=== PATIENT | male | born 1960 | race Caucasian/White ===

== ENCOUNTER → 2024-10-24 09:14 | Outpatient (BNVA) | payer OTHER, SELFPAY | DX: E03.9 Hypothyroidism, unspecified (principal); E11.9 Type 2 diabetes mellitus without complications; Z23 Encounter for immunization; I10 Essential (primary) hypertension; K59.01 Slow transit constipation; H93.11 Tinnitus, right ear; H91.93 Unspecified hearing loss, bilateral; Z79.84 Long term (current) use of oral hypoglycemic drugs; Z79.899 Other long term (current) drug therapy | CPT/HCPCS: 83036; 90471; 90656; 96127 ==

== ENCOUNTER 2024-11-01 07:27 | Outpatient (REF) | payer OTHER, SELFPAY ==
[2024-11-01 07:43] LABS: MANUAL DIFF FLAG NO
[2024-11-01 08:06] LABS: Basophils Absolute Auto 0.1 X10*3/uL (0.0-0.2); Basophils Percent Auto 0.6 % (0-2); Eosinophils Absolute Auto 0.1 X10*3/uL (0.0-0.4); Eosinophils Percent Auto 1.7 % (0-4); Hemoglobin 14.7 g/dl (14.0-18.0); Imm Gran Abs Auto 0.04 X10*3/uL (0.00-0.03); Imm Gran Pct Auto 0.5 % (0.0-0.4); Lymphocytes Absolute Auto 1.4 X10*3/uL (1.2-4.9); Lymphocytes Percent Auto 16.2 % (20-40); Mean Corpuscular HGB Conc 32.7 g/dl (31.0-36.0); Mean Corpuscular Hemoglobin 27.1 pg (27.0-33.0); Mean Platelet Volume 12.3 fL (9.4-12.4); Monocytes Absolute Auto 0.7 X10*3/uL (0.1-1.2); Monocytes Percent Auto 8.1 % (2-11); Neutrophils Absolute Auto 6.2 x10*3/uL (2.0-8.3); Neutrophils Percent Auto 72.9 % (45-73); Platelet Count 248 X10*3/uL (160-400); Red Blood Count 5.42 X10*6/uL (4.60-5.80); Red Cell Distribution Width 13.6 % (11.0-16.0); White Blood Count 8.4 X10*3/uL (4.8-10.8)
[2024-11-01 08:18] LABS: Estimated Average Glucose 223 mg/dL; Hemoglobin A1C 303.2579 umol/L; Hemoglobin A1c % 9.4 % (<6.0); Total Hemoglobin (HGBA1C) 3802.7942 umol/L
[2024-11-01 08:39] LABS: Alanine Aminotransferase 24 U/L (0-40); Albumin Level 4.1 g/dL (3.5-5.0); Alkaline Phosphatase 66 U/L (39-117); Anion Gap 15 (12-20); Aspartate Amino Transferase 17 U/L (5-37); Bilirubin Total 0.6 mg/dL (0.0-1.0); Blood Urea Nitrogen 21 mg/dL (9-16); Carbon Dioxide 29 mmol/L (22-29); Chloride 100 mmol/L (96-108); Cholesterol 197 mg/dL (<200); Estimated Glomerular Filt Rate > 60; Glucose Fasting 182 mg/dL (60-99); HDL Cholesterol 51 mg/dL (>40); LDL Cholesterol Calculated 125 mg/dL (<100); Potassium 3.6 mmol/L (3.3-5.1); Sodium 140 mmol/L (135-145); Total Protein 7.2 g/dL (6.5-8.0); Triglycerides 107 mg/dL (<150)
[2024-11-01 08:54] LABS: PSA,Total (Free>4and<10) 4.68 ng/mL (0.00-4.00)
[2024-11-01 08:57] LABS: TSH reflex Free T4 78.12 uIU/mL (0.32-4.0); Vitamin D 25-OH Total 21.2 ng/mL (>30)
[2024-11-01 09:40] LABS: Appearance Urine Clear; Color Urine Yellow; Glucose Urine UA 500 mg/dL (Negative); Leukocyte Esterase Urine Trace (Negative); Nitrite Urine Negative (Negative); PH 6.5 (5.0-9.0); Specific Gravity - Urine 1.025 (1.005-1.025); UMIC TRIGGER UACC YES; Urine Blood Large (3+) (Negative); Urine Ketones Negative (Negative); Urine Protein 30 (1+) mg/dL (Neg-Trace)
[2024-11-01 09:42] LABS: Bacteria Urine None Seen (None Seen); RBC Urine >20 /HPF (0-2); Squamous Epithelial Cell Urine 0-2 /HPF (0-2); UACC Culture Trigger YES
[2024-11-01 11:06] LABS: Creatinine Urine 172.15 mg/dL; Microalbum/Creatinine Ratio Ur 106.8 ug/mg cr (<30)
[2024-11-04 12:14] LABS: Free Prostate Spec Ag 0.5 ng/mL; Percent Free Prostate Spec Ag 12 % (calc) (>25); Prostate Specific Ag Total 4.1 ng/mL (< OR = 4.0)
== END 2024-11-01 07:28 | disposition home or self-care (01) ==
LOC: HO.LAB 07:27
DX: Z00.00 Encounter for general adult medical examination without abnormal findings (principal); I10 Essential (primary) hypertension; E03.9 Hypothyroidism, unspecified; E11.9 Type 2 diabetes mellitus without complications; Z12.5 Encounter for screening for malignant neoplasm of prostate
CPT/HCPCS: 36415; 80053; 80061; 81001; 82043; 82306; 82570; 83036; 84153; 84154; 84439; 84443; 85025; 87086

== ENCOUNTER 2024-11-04 06:43 | Outpatient (REF) | payer OTHER, SELFPAY ==
[2024-11-04 08:26] LABS: PSA,Total (Free>4and<10) 3.88 ng/mL (0.00-4.00)
[2024-11-04 09:59] LABS: Appearance Urine Clear; Color Urine Yellow; Glucose Urine UA 500 mg/dL (Negative); Leukocyte Esterase Urine Negative (Negative); Nitrite Urine Negative (Negative); PH 5.5 (5.0-9.0); Specific Gravity - Urine 1.025 (1.005-1.025); UMIC TRIGGER UACC YES; Urine Blood Large (3+) (Negative); Urine Ketones Negative (Negative); Urine Protein 30 (1+) mg/dL (Neg-Trace)
[2024-11-04 10:01] LABS: Bacteria Urine None Seen (None Seen); Hyaline Casts Urine 0-2 /LPF (0-2); RBC Urine >20 /HPF (0-2); Squamous Epithelial Cell Urine 0-2 /HPF (0-2); WBC Urine 0-5 /HPF (0-5)
== END 2024-11-04 06:44 | disposition home or self-care (01) ==
LOC: HO.LAB 06:43
DX: Z00.00 Encounter for general adult medical examination without abnormal findings (principal); I10 Essential (primary) hypertension; E03.9 Hypothyroidism, unspecified; E11.9 Type 2 diabetes mellitus without complications; R97.20 Elevated prostate specific antigen [PSA]; Z12.5 Encounter for screening for malignant neoplasm of prostate
CPT/HCPCS: 36415; 81001; 84153

== ENCOUNTER 2024-11-07 10:09 | Outpatient (AMB) | payer OTHER, SELFPAY ==
[2024-11-07 10:34] VITALS: BP 136/88; PULSE 100; TEMP 36.1; O2SAT 97; BMI 26.9
--- NOTE | 2024-11-07 10:34 | A.OFFPC_ITS ---
Vital Signs 11/07/24 10:34 Height 5 ft 5.55 in Weight 164 lb 8 oz BMI 26.9 BP 136/88 Blood Pressure Location Lt brachial Position Sitting Pulse 100 Pulse Source Pulse Oximeter Temp 96.9 F Temp Source Temporal Artery Scan Pulse Oximetry (%) 97 Oxygen Delivery Method Room Air Intake Visit Reasons: pe Intake Note: Patient is here today for a physical. Lead Producer Required: No Accompanied by: Self / Same As Patient Allergies No Known Allergies Allergy (Verified 11/07/24 10:40) Tobacco use date assessed: 10/24/24 Dental Screening Dental Screen Date: 10/24/24 HPI pe HPI Details Dentist: long time-reports Eye: not in a while-reports that his eyes are good Snellen: Right: Left: Corrected vision: no STI screening: Colonoscopy: due, he wants to hold off and until his insurance changes Pap Smer:n/a PHQ-9: Flu: up to date COVID: x2 and 1 booster Tdap: Given in office Diet: diabetic Exercise: walks on treadmill for at least a mile few times a week The patient is a 63-year-old male who was presenting for annual physical Patient is due for a colonoscopy but he wants to wait until his insurance changes before proceeding Similarly the patient wants to wait for new insurance before being referred to an maintenance groundman The patient was encouraged to see a dentist The patient reports right groin hernia-on exam. The patient has a large right groin reducible hernia He denies pain to the area. Discussed with the patient about possibly referring him to General surgery. The patient wants to hold off on the referral-reports that the areas not bothering him and money he is tight at this time The patient had an elevated PSA that was within normal range but on the higher side of normal on repeat lab Patient does endorse lower urinary symptoms of weak stream, unable to urinate on command. He reports that he had to take the urine cup home in order to complete a urinalysis. Discussed with patient about referring him to Urology and he agreed The patient also had + 3 blood in the urine. Will repeat urinalysis with cytology Patient continues to have large amount of ear impaction-will have the patient continue ear drops and return in 1 week for ear cleaning will refer to urology [facility] Medical History Stroke HTN (hypertension) Type II diabetes mellitus Thyroid cancer Hx pulmonary embolism Surgical History S/P hemorrhoidectomy S/P hernia surgery Family History Father Stroke Type II diabetes mellitus HTN (hypertension) Social History Housing: Apartment Patient Tobacco Use Status: Never used Tobacco e-Cigarette/Vaping Use: Never Used service: No Current occupational status: employed and retired Cognitive needs: No Hearing needs: No Vision needs: No Questionnaire Thrive Questionnaire Date Thrive assessed: 10/24/24 I am a: Patient What is your living situation today?: I have a steady place to live Within the past 12 months, did the food you bought not last and you didn't have the money to get more?: Sometimes True Within the past 12 months, did you worry whether your food would run out before you got money to buy more?: Sometimes True Do you have trouble paying for medicines?: Yes Do you have trouble getting transportation to medical appointments?: No Do you have trouble paying your heating and electricity bill?: No Do you have trouble taking care of your child, family member or friend?: No Do you have trouble with day-to-day activities such as bathing, preparing meals, shopping, managing finances, etc.?: No Are you currently unemployed and looking for a job?: No Are you interested in more education?: No Please select the resources that you would like help with: None Currently or been in a relationship where the following occur: No concerns reported THRIVE Score: 2 ELIDA-7 AMB Questionnaire ELIDA-7 Date ELIDA - 7 assessed: 10/24/24 Source: Developed by Drs. Javier Johnson, Aurea Coe, James Contreras and colleagues, with an educational alicja from [employer]. Review of Systems Const Details: Denies chills, Denies fatigue, Denies fever(s), Denies headache(s) and Denies weakness HEENT Denies change in vision, Denies dizziness, Denies headache(s), Denies hearing loss, Denies nasal congestion, Denies sinus pain, Denies sinus pressure and Denies sore throat Card Denies chest pain, Denies lightheadedness, Denies dyspnea and Denies other (palpitations) Resp Denies cough, Denies dyspnea and Denies wheezing GI Denies abdominal pain, Denies melena, Denies hematochezia, Denies change in bowel habits, Denies dyspepsia and Denies nausea, + right groin hernia Denies hematuria and Denies dysuria, + weak urinary stream, + unable to pee on command, Musc Denies abnormal gait, Denies myalgias, Denies arthralgias, Denies numbness and Denies tingling Skin/Breast Denies rash, Denies unusual bruising and Denies wounds Neuro Denies abnormal gait, Denies dizziness, Denies headache(s), Denies memory loss, Denies numbness, Denies Sensory deficit (Neuro), Denies tingling and Denies weakness Psych Denies anxiety, Denies depression and Denies memory loss Endo Denies cold intolerance, Denies fatigue, Denies heat intolerance, Denies polydipsia and Denies polyuria Cameron/Lymph Denies easy bleeding and Denies easy bruising Aller/Immun Denies wheezing Physical exam (Primary Care) Vital Signs: Last Vital Signs Temp 96.9 F 11/07/24 10:34 Pulse 100 11/07/24 10:34 BP 136/88 11/07/24 10:34 Pulse Ox 97 11/07/24 10:34 Oxygen Delivery Method Room Air 11/07/24 10:34 BMI result Body Mass Index 26.9 Tobacco/Smoking Status: Tobacco use Status Tobacco use date assessed 10/24/24 11/07/24 10:38 Patient Tobacco Use Status Never used Tobacco 11/07/24 10:38 e-Cigarette/Vaping Use Never Used 11/07/24 10:38 Thrive Assessment: Date of Thrive Assessment Date Thrive assessed 10/24/24 11/07/24 10:38 Currently or been in a relationship where the following occur: No concerns reported Const Other: General: no acute distress, well developed, alert and awake Nutritional Appearance: well nourished Orientation/consciousness: patient oriented x3 HENMT Head: Yes normocephalic and Yes atraumatic Ears: hearing grossly normal bilaterally and TM's normal bilaterally General nose exam: Normal external nose present and Normal nares present Mouth: Normal oral and palatal mucosa present and moist mucous membranes Teeth and gingiva: dentition normal Throat: Yes oropharynx normal Eyes Pupils: Equal, round and reactive pupils present and Pupil accommodation reflex normal EOM: EOMs intact bilaterally Neck Neck: Yes normal visual inspection, Yes no lymphadenopathy and Yes trachea midline Thyroid: Thyroid normal Carotids: no bruits Lymphatic: no lymphadenopathy noted Chest Chest palpation & inspection: normal inspection of the chest Resp Effort & Inspection: normal respiratory effort Auscultation: clear to auscultation bilaterally Cardio Rate: regular rate Rhythm: regular rhythm Heart sounds: S1 normal heart sound present, S2 normal heart sound present, no gallops, no murmurs and no rubs Bruits: no abdominal aortic bruits and no carotid bruits GI Palpation (GI): No Abdominal aortic bruit present, Soft to palpation, nontender, No hepatosplenomegaly present and No Rebound tenderness present, + right groin hernia Auscultation: normal bowel sounds General: Yes no CVA tenderness Back/Spine/Pelvis Back: no CVA tenderness Cervical Spine: cervical ROM normal and No Cervical spine tenderness Thoracic/Lumbar Spine: thoraco-lumbar ROM normal, No pain with thoraco-lumbar ROM, No thoracic spinal tenderness and No lumbar spinal tenderness Skin General: warm and dry. Normal skin color. Normal skin turgor Lesions: no lesions Rashes: no rashes Trauma: no lacerations or abrasions Wounds: no wounds Nails: normal Neuro General: patient oriented x3, gait normal and CN's II-XI intact bilaterally Cranial nerves: Yes Equal, round and reactive pupils present Cognition (Neuro): normal cognition Gait exam (Neuro): Normal gait present Motor exam (neuro): 5/5 motor strength present throughout Sensory Exam: No Sensory deficit (Neuro) Deep tendon reflexes (DTR's): Right patellar reflex intensity grade: 2+ and Left patellar reflex intensity grade: 2+ Extrem General: Yes normal to inspection, No edema and No calf tenderness Psych Appearance: grossly normal Affect: normal affect Attitude: cooperative Thought process: Normal thought process present Immunizations Boostrix Tdap 2.5 Lf unit-8 mcg-5 Lf/0.5 mL intramuscular syringe Performing Provider: ROLF Mendez Performing Location: [facility] Administered by: JEFFREY Miller on 11/07/24 11:01 Dose Route Admin Location Dispensed Lot Number Expiration Date NDC Manager Application 0.5 mL IM Right Deltoid 0.5 mL [id number] 12/07/26 00224-817-45 [employer] VIS Given Date VIS Provided VIS Publication Date 11/07/24 Single Vaccine 21 Eligibility Eligibility Date Funding Source Not [facility] Eligible 11/07/24 Private Results Reviewed Results Reviewed: Laboratory Tests 11/01/24 11/01/24 11/04/24 07:41 08:54 06:53 WBC 8.4 RBC 5.42 Hgb 14.7 Hct 45.0 Plt Count 248 Sodium 140 Potassium 3.6 Chloride 100 Carbon Dioxide 29 Anion Gap 15 BUN 21 H Creatinine 0.85 Estimated GFR > 60 Fasting Glucose 182 H Hemoglobin A1c % 9.4 H Calcium 9.0 Total Bilirubin 0.6 AST 17 ALT 24 Alkaline Phosphatase 66 Total Protein 7.2 Albumin 4.1 Triglycerides 107 Cholesterol 197 LDL Cholesterol, Calc 125 H HDL Cholesterol 51 Total PSA 4.68 H 3.88 Total PSA (off-site) 4.1 H 25-OH Vitamin D Total 21.2 L TSH 78.12 H Free T4 1.20 Urine Color Urine Appearance Urine pH Ur Specific [place] Urine Protein Urine Glucose (UA) Urine Ketones Urine Blood Urine Nitrite Ur Leukocyte Esterase Urine RBC Urine WBC Ur Squamous Epith Cells Hyaline Casts 11/04/24 09:15 WBC RBC Hgb Hct Plt Count Sodium Potassium Chloride Carbon Dioxide Anion Gap BUN Creatinine Estimated GFR Fasting Glucose Hemoglobin A1c % Calcium Total Bilirubin AST ALT Alkaline Phosphatase Total Protein Albumin Triglycerides Cholesterol LDL Cholesterol, Calc HDL Cholesterol Total PSA Total PSA (off-site) 25-OH Vitamin D Total TSH Free T4 Urine Color Yellow Urine Appearance Clear Urine pH 5.5 Ur Specific [place] 1.025 Urine Protein 30 (1+) H Urine Glucose (UA) 500 H Urine Ketones Negative Urine Blood Large (3+) H Urine Nitrite Negative Ur Leukocyte Esterase Negative Urine RBC >20 H Urine WBC 0-5 Ur Squamous Epith Cells 0-2 Hyaline Casts 0-2 Coding Level of Care Code Est Pt Prev Care 40-64y([id number]) Diagnoses Annual physical exam Z00.00 Idiopathic hematuria, unspecified whether glomerular morphologic changes present N02.9 Hematuria type: idiopathic Glomerular morphologic changes: unspecified whether glomerular morphologic changes present Elevated PSA R97.20 Decreased hearing of both ears H91.93 Ringing in right ear H93.11 Slow transit constipation K59.01 Constipation type: slow transit constipation Bilateral impacted cerumen H61.23 Acquired hypothyroidism E03.9 Type 2 diabetes mellitus without complication, without long-term current use of insulin E11.9 Diabetes mellitus joint terminal attack controller insulin use: without joint terminal attack controller use Diabetes mellitus complication status: without complication Right groin hernia K40.90 Decreased urine output R34 Benign essential HTN I10 Time Spent (min) 39 Assessment & Plan Assessment & Plan (1) Annual physical exam: Code(s): Z00.00 - Encounter for general adult medical examination without abnormal findings Category: Medical Plan: The patient is a 63-year-old male who was presenting for annual physical Patient is due for a colonoscopy but he wants to wait until his insurance changes before proceeding Similarly the patient wants to wait for new insurance before being referred to an maintenance groundman The patient was encouraged to see a dentist (2) Hematuria: Code(s): R31.9 - Hematuria, unspecified Category: Medical Qualifiers: Hematuria type: idiopathic Glomerular morphologic changes: unspecified whether glomerular morphologic changes present Qualified Code(s): N02.9 - Recurrent and persistent hematuria with unspecified morphologic changes Plan: Urinalysis was reordered along with a cytology No CVA tenderness (3) Elevated PSA: Code(s): R97.20 - Elevated prostate specific antigen [PSA] Category: Medical Plan: The patient had an elevated PSA that was within normal range but on the higher side of normal on repeat lab Patient does endorse lower urinary symptoms of weak stream, unable to urinate on command. He reports that he had to take the urine cup home in order to complete a urinalysis. Discussed with patient about referring him to Urology and he agreed (4) Decreased hearing of both ears: Code(s): H91.93 - Unspecified hearing loss, bilateral Category: Medical Plan: Same as above (5) Ringing in right ear: Code(s): H93.11 - Tinnitus, right ear Category: Medical Plan: Most likely due to bilateral ear impaction. Unable to visualize eardrum, will work on removing cerumen to further assess (6) Constipation: Code(s): K59.00 - Constipation, unspecified Category: Medical Qualifiers: Constipation type: slow transit constipation Qualified Code(s): K59.01 - Slow transit constipation Plan: constipation: ongoing, he reports that he is going everyday but has a sit on the toilet for extended periods in order to go Discussed with patient that he should increase his fluid intake, increase his fiber intake and stay active as possible (7) Bilateral impacted cerumen: Code(s): H61.23 - Impacted cerumen, bilateral Category: Medical Plan: bilateral nares: ear canals blocked with cerumen reports ringing the right ear. Dark brown, hard appearing cerumen in boths Reports mild decreased hearing, denies ear pain debrox ordered. Discussed with patient that this might not be covered because it could be purchased OTC Patient was encouraged to get it [id number] if his insurance does not cover it Bilateral ear continued to have large amount of dark brown cerumen impaction The patient was encouraged to continue to use the ear drops and to return in 1 week for ear cleaning (8) Acquired hypothyroidism: Code(s): E03.9 - Hypothyroidism, unspecified Category: Medical Plan: Acquired hypothyroidism due to thyroid cancer in 2011 in a full removal of thyroid glands Continue levothyroxine 150 mcg daily Patient reports that he was taking half of the dose at sometimes to prevent the medication from running out The patient TSH was elevated but his T4 was within normal range We will recheck labs in 3 months (9) Type II diabetes mellitus: Comment: father Code(s): E11.9 - Type 2 diabetes mellitus without complications Category: Medical Qualifiers: Diabetes mellitus chcf insulin use: without joint terminal attack controller use Diabetes mellitus complication status: without complication Qualified Code(s): E11.9 - Type 2 diabetes mellitus without complications Plan: The patient is currently on metformin 500 mg b.i.d.. A1c 9.7. in office. Will increase metformin to 1000 mg b.i.d. discussed with patient about dietary changes We will recheck labs in 3 months (10) Right groin hernia: Code(s): K40.90 - Unilateral inguinal hernia, without obstruction or gangrene, not specified as recurrent Category: Medical Plan: Large reducible right groin hernia. Denies pain. Declined referral to general surgery due to pending insurance changes and limited funds. Discussed with patient that if the area starts hurting he would have to go to emergency room (11) Decreased urine output: Code(s): R34 - Anuria and oliguria Category: Medical Plan: The patient was started on Flomax 0.4 mg daily and the patient was referred to [facility] (12) Benign essential HTN: Code(s): I10 - Essential (primary) hypertension Category: Medical Plan: The patient blood pressure was 136/88 in office Continue lisinopril 40 mg daily, hydrochlorothiazide 12.5 mg daily Reinforced a low-sodium diet will continue to monitor Plan Patient to return in 3 months for follow up appointment Orders: Orders Complete Blood Count Auto Diff 3 Months E03.9 - Hypothyroidism, unspecified, E11.9 - Type 2 diabetes mellitus without complications, I10 - Essential (primary) hypertension UA CC w/rflx Micro + Cult 3 Months E03.9 - Hypothyroidism, unspecified, E11.9 - Type 2 diabetes mellitus without complications, I10 - Essential (primary) hypertension TSH reflex Free T4 3 Months E03.9 - Hypothyroidism, unspecified, E11.9 - Type 2 diabetes mellitus without complications, I10 - Essential (primary) hypertension Vitamin D 25-OH Total 3 Months E03.9 - Hypothyroidism, unspecified, E11.9 - Type 2 diabetes mellitus without complications, I10 - Essential (primary) hypertension Hemoglobin A1c 3 Months E03.9 - Hypothyroidism, unspecified, E11.9 - Type 2 diabetes mellitus without complications, I10 - Essential (primary) hypertension TDaP Immunization Today Z23 - Encounter for immunization UA CC w/rflx Micro + Cult Today R31.9 - Hematuria, unspecified Urine Cytology Today R31.9 - Hematuria, unspecified Lipid Panel 3 Months E03.9 - Hypothyroidism, unspecified, E11.9 - Type 2 diabetes mellitus without complications, I10 - Essential (primary) hypertension Comprehensive [place]. Panel Fast 3 Months E03.9 - Hypothyroidism, unspecified, E11.9 - Type 2 diabetes mellitus without complications, I10 - Essential (pr imary) hypertension Glucose Fasting 3 Months E03.9 - Hypothyroidism, unspecified, E11.9 - Type 2 diabetes mellitus without complications, I10 - Essential (primary) hypertension Referrals Urology Referral N02.9 - Recurrent and persistent hematuria with unspecified morphologic changes, R34 - Anuria and oliguria, R97.20 - Elevated prostate specific antigen [PSA] Medications: New tamsulosin (Flomax) 0.4 mg PO BEDTIME 30 caps 2RF
== END 2024-11-07 11:17 | disposition home or self-care (01) ==
DX: Z23 Encounter for immunization (principal)

== ENCOUNTER → 2024-11-07 10:09 | Outpatient (BNVA) | payer OTHER, SELFPAY | DX: Z00.00 Encounter for general adult medical examination without abnormal findings (principal); Z23 Encounter for immunization; N02.9 Recurrent and persistent hematuria with unspecified morphologic changes; R97.20 Elevated prostate specific antigen [PSA]; H91.93 Unspecified hearing loss, bilateral; H93.11 Tinnitus, right ear; K59.01 Slow transit constipation; H51.23 Internuclear ophthalmoplegia, bilateral; E03.9 Hypothyroidism, unspecified; E11.9 Type 2 diabetes mellitus without complications; K40.90 Unilateral inguinal hernia, without obstruction or gangrene, not specified as recurrent; R34 Anuria and oliguria; I10 Essential (primary) hypertension; Z79.899 Other long term (current) drug therapy | CPT/HCPCS: 90471; 90715 ==

== ENCOUNTER 2024-11-11 08:41 | Outpatient (REF) | payer OTHER, SELFPAY ==
[2024-11-11 09:59] LABS: Urine Cytology See Pathology rpt
[2024-11-11 10:14] LABS: Appearance Urine Clear; Color Urine Yellow; Glucose Urine UA 500 mg/dL (Negative); Leukocyte Esterase Urine Negative (Negative); Nitrite Urine Negative (Negative); PH 6.5 (5.0-9.0); Specific Gravity - Urine 1.025 (1.005-1.025); UMIC TRIGGER UACC YES; Urine Blood Moderate (2+) (Negative); Urine Ketones Trace mg/dL (Negative); Urine Protein Trace mg/dL (Neg-Trace)
[2024-11-11 10:20] LABS: Bacteria Urine None Seen (None Seen); Hyaline Casts Urine 0-2 /LPF (0-2); RBC Urine >20 /HPF (0-2); Squamous Epithelial Cell Urine 0-2 /HPF (0-2); WBC Urine 0-5 /HPF (0-5)
== END 2024-11-11 08:42 | disposition home or self-care (01) ==
LOC: HO.LAB 08:41
DX: R31.9 Hematuria, unspecified (principal)
CPT/HCPCS: 81001; 81003; 88112

== ENCOUNTER 2024-11-13 10:13 | Outpatient (AMB) | payer OTHER, SELFPAY ==
--- NOTE | 2024-11-13 10:20 | MHC.PC.OV ---
Vital Signs 11/13/24 10:26 Height 5 ft 5.55 in Weight 169 lb BMI 27.7 BP 130/74 Blood Pressure Location Lt brachial Position Sitting Pulse 98 Pulse Source Pulse Oximeter Temp 97.3 F Temp Source Temporal Artery Scan Pulse Oximetry (%) 98 Oxygen Delivery Method Room Air Intake Visit Reasons: Ear Cleaning Intake Note: Patient is here to follow up on Ear cleaning. [place] Screen Measurer And Trimmer Required: No [place] Maori: Not Required per policy Accompanied by: Self / Same As Patient Allergies No Known Allergies Allergy (Verified 11/13/24 10:21) Tobacco use date assessed: 11/13/24 Fall risk assessment: No Falls in past year Last assessed Fall Risk: 11/13/24 Dental Screening Dental Screen Date: 10/24/24 HPI Ear Cleaning HPI Details 63-year-old male with past medical history of diabetes mellitus, hypothyroidism and hypertension last seen by nurse practitioner coming in for ear cleaning. [facility] Medical History Stroke HTN (hypertension) Type II diabetes mellitus Thyroid cancer Hx pulmonary embolism Surgical History S/P hemorrhoidectomy S/P hernia surgery Family History Father Stroke Type II diabetes mellitus HTN (hypertension) Social History Housing: Apartment Patient Tobacco Use Status: Never used Tobacco e-Cigarette/Vaping Use: Never Used service: No Current occupational status: employed and retired Cognitive needs: No Hearing needs: No Vision needs: No Questionnaire Thrive Questionnaire Date Thrive assessed: 10/24/24 I am a: Patient What is your living situation today?: I have a steady place to live Within the past 12 months, did the food you bought not last and you didn't have the money to get more?: Sometimes True Within the past 12 months, did you worry whether your food would run out before you got money to buy more?: Sometimes True Do you have trouble paying for medicines?: Yes Do you have trouble getting transportation to medical appointments?: No Do you have trouble paying your heating and electricity bill?: No Do you have trouble taking care of your child, family member or friend?: No Do you have trouble with day-to-day activities such as bathing, preparing meals, shopping, managing finances, etc.?: No Are you currently unemployed and looking for a job?: No Are you interested in more education?: No Please select the resources that you would like help with: None Currently or been in a relationship where the following occur: No concerns reported THRIVE Score: 2 AUDIT C Alcohol Use Questionnaire (AUDIT-C) 3. How often do you have six or more drinks on one occasion?: Never Total Score: 0 ELIDA-7 AMB Questionnaire ELIDA-7 Date ELIDA - 7 assessed: 10/24/24 Source: Developed by Drs. Javier Johnson, Aurea Coe, James Contreras and colleagues, with an educational alicja from [employer]. Review of Systems Const Denies body aches, Denies chills and Denies fever(s) Eyes Reports no additional complaints ENT Details: Ear clogged feeling bilaterally Denies dizziness Skin/Breast Reports system reviewed and no additional complaints, except as documented Neuro Denies dizziness Psych Reports no additional complaints Physical exam (Primary Care) Vital Signs: Last Vital Signs Temp 97.3 F 11/13/24 10:26 Pulse 98 11/13/24 10:26 BP 130/74 11/13/24 10:26 Pulse Ox 98 11/13/24 10:26 Oxygen Delivery Method Room Air 11/13/24 10:26 BMI result Body Mass Index 27.7 Tobacco/Smoking Status: Tobacco use Status Tobacco use date assessed 11/13/24 11/13/24 10:28 Patient Tobacco Use Status Never used Tobacco 11/13/24 10:28 e-Cigarette/Vaping Use Never Used 11/13/24 10:28 Thrive Assessment: Date of Thrive Assessment Date Thrive assessed 10/24/24 11/13/24 10:28 Currently or been in a relationship where the following occur: No concerns reported Const General: cooperative, healthy appearing, comfortable and no acute distress Orientation/consciousness: patient oriented x3 HENMT Head: Yes normocephalic Ears: hearing grossly normal bilaterally and Abnormal EAC present cerumen impaction bilateral General nose exam: Normal external nose present Eyes General: appearance normal, both eyes and all related structures Conjunctivae: conjunctivae normal Neck Neck: Yes full ROM and Yes no lymphadenopathy Resp Effort & Inspection: normal respiratory effort Cardio Rate: regular rate Skin General skin exam: no rashes or lesions noted Neuro General: patient oriented x3 Gait exam (Neuro): Normal gait present Extrem General: Yes normal to inspection, Yes full ROM and No edema Psych Affect: normal affect Attitude: cooperative Insight: Good insight present (Psych) Judgement: Good judgement present (Psych) Office Procedures Cerumen Removal From which ear canal was the cerumen removed: bilateral Removal: irrigation and cerumen loop/spoon Notes: patient tolerated procedure well, no complications and ear canal clear [id number] Irrigation/Lavage Coding Level of Care Code Procedure Only Diagnoses Bilateral impacted cerumen H61.23 CPT Codes Office Procedure - CPT: 35174-Wbq Irrigation/Lavage ([id number]) Assessment & Plan Assessment & Plan (1) Bilateral impacted cerumen: Code(s): H61.23 - Impacted cerumen, bilateral Category: Medical Plan: Ears were successfully cleaned using lighted curette and irrigation. TMs were visualized as intact with well aerated middle ear spaces patient tolerated the procedure well. Additionally had some lightheadedness that resolved within a few minutes. Patient left the room without issue. Follow up as needed for this concern. Plan This note was constructed using voice recognition software. While every effort has been made to ensure accuracy and rn endoscopy, still areas may have been included sometimes these areas may affect the content or meeting of the given symptoms. Total time spent caring for the patient today was 15 minutes. This includes time spent before the visit reviewing the chart, time spent during the visit, and time spent after the visit and documentation.
[2024-11-13 10:26] VITALS: BP 130/74; PULSE 98; TEMP 36.3; O2SAT 98; BMI 27.7
== END 2024-11-13 11:04 | disposition home or self-care (01) ==
DX: H61.23 Impacted cerumen, bilateral (principal)

== ENCOUNTER → 2024-11-13 10:13 | Outpatient (BNVA) | payer OTHER, SELFPAY | DX: H61.23 Impacted cerumen, bilateral (principal) | CPT/HCPCS: 69210 ==

== ENCOUNTER 2025-01-02 14:30 | Outpatient (AMB) | payer MEDICARE, SELFPAY ==
--- NOTE | 2025-01-02 14:44 | A.OFFVIS_ITS ---
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 Yoon. He has a past medical history of hypertension, type 2 diabetes, thyroid cancer, and pulmonary embolism. He presents to the office today as a new patient for gross hematuria. In discussion with the patient today he reports having followed up with his PCP for ongoing urinary issues he had been experiencing at which time urinalysis noted microscopic hematuria and recommendations were made for urology referral for further assessment evaluation. He reports having initiated Flomax with PCP and feels this has been helpful in episodes of urinary hesitancy and weak urinary stream he had been experiencing. However he describes an episode of gross hematuria approximately 2 weeks ago. He reports this was a solitary event. Unable to obtain urine for urinalysis today however PVR 190 mL. We discussed potential causes of gross hematuria, incomplete bladder emptying, and lower urinary tract symptoms patient was experiencing. When asked he denies any known workplace chemical exposure and or nicotine dependence. We discussed obtaining further imaging. In review of patient's chart it appears urine cytology 11/12 Negative for high-grade urothelial carcinoma. I discussed reasons for blood in the urine may include but are not limited to kidney stones, cancer in the urinary tract, BPH, kidney stone disease or inflammatory conditions of the urinary tract. I have discussed workup to include cystoscopy evaluation. In review of patient's chart it appears PSA 11/12 3.9. Discussion Notes During the visit, I discussed the finding of gross hematuria with the patient. I explained the difference between microscopic and gross hematuria and emphasized that gross hematuria warrants further investigation. I recommended obtaining a CT scan of the kidneys and bladder for further assessment evaluation. I also discussed the safety and efficacy of performing a cystoscopy to inspect the bladder, providing reassurance about the procedure's duration, and risks and benefits. The patient was informed of the need for this diagnostic evaluation due to the presence of visible blood. We reviewed his current use of tamsulosin, which he finds beneficial. No further questions or concerns were expressed by the patient at this time. Plan The management plan involves conducting a CT scan of the kidneys and bladder to evaluate for urinary tract abnormalities due to gross hematuria. Upon finding any abnormalities or if gross hematuria persists, a cystoscopy will be performed to directly examine the bladder. I will ensure the patient is adequately informed about the procedural details, expected benefits, and risk, securing his consent. The patient is encouraged to maintain the use of tamsulosin as it ameliorates his current symptoms. Further management steps will be considered based on the results of these investigations. [facility] Medical History Stroke HTN (hypertension) Type II diabetes mellitus Thyroid cancer Hx pulmonary embolism Surgical History S/P hemorrhoidectomy S/P hernia surgery Family History Father Stroke Type II diabetes mellitus HTN (hypertension) Social History Housing: Apartment Patient Tobacco Use Status: Never used Tobacco e-Cigarette/Vaping Use: Never Used service: No Current occupational status: employed and retired Cognitive needs: No Hearing needs: No Vision needs: No Review of Systems Const All systems reviewed & are unremarkable except as noted in HPI and below Eyes Reports no additional complaints ENT Reports as per HPI Card Reports as per HPI Resp Reports no additional complaints GI Reports no additional complaints Reports as per HPI Musc Reports no additional complaints Neuro Reports as per HPI Psych Reports no additional complaints Endo Reports no additional complaints Cameron/Lymph Reports as per HPI Aller/Immun Reports no additional complaints Physical Exam Const General: cooperative, healthy appearing, comfortable, no acute distress, well developed, alert and awake Orientation/consciousness: patient oriented x3 Limitations: no limitations HEENT Head: Yes normal to inspection, Yes normocephalic and Yes atraumatic Ears: hearing grossly normal bilaterally Eyes General: appearance normal, both eyes and all related structures Neck Neck: Yes normal visual inspection and Yes trachea midline Chest Chest palpation & inspection: normal inspection of the chest Resp Effort & Inspection: normal respiratory effort and able to speak in complete sentences Cardio Rate: regular rate GI Inspection: Yes normal to inspection General: Yes no CVA tenderness Back/Spine/Pelvis Back: no CVA tenderness Skin General skin exam: no rashes or lesions noted Neuro General: patient oriented x3 Extrem General: Yes normal to inspection Psych Appearance: grossly normal and well kempt Mental Status: mental status grossly normal Speech and movement: Normal speech and movement present and Clear speech present Affect: normal affect Attitude: cooperative Thought process: Normal thought process present Thought content: Normal thought content present Insight: Fair insight present (Psych) Judgement: Fair judgement present (Psych) Office Procedures Post Void Residual Post Residual Void Post Void Residual (PVR): 190 [id number] Void Residual by ultrasound Assessment & Plan Assessment & Plan (1) Gross hematuria: Code(s): R31.0 - Gross hematuria Category: Medical (2) Incomplete bladder emptying: Code(s): R33.9 - Retention of urine, unspecified Category: Medical Plan Unable to obtain urine for urinalysis however PVR 190ml's. We discussed at length potential causes of gross hematuria as well as lower urinary tract symptoms he had been experiencing. We discussed potential causes of incomplete bladder emptying Will obtain CT urogram for further assessment evaluation. BUN and creatinine ordered for imaging. Continue Flomax as prescribed. Schedule for in office cystoscopy with imaging and labs to be completed prior Follow-up per doctor's orders; or sooner with any issues, concerns, and or questions. Orders: Orders CT urogram Today R31.0 - Gross hematuria Blood Urea Nitrogen Today R31.0 - Gross hematuria Creatinine Today R31.0 - Gross hematuria Patient Instructions: The patient had an opportunity to ask questions regarding the treatment plan. All questions were answered. Physical exam, labs, and imaging were discussed and reviewed in detail. As well as risks, benefits, and discussion of treatment choices. No major barriers to understanding were identified. The patient expressed understanding and agreement with the above treatment plan. The patient was made aware they should contact our office by phone for worsening of their current condition, the appearance of new symptoms, or with any questions or concerns. Compliance is encouraged with any medications and follow up testing that is ordered. It is a privilege to be allowed the opportunity to participate in? your urological care.? Again, if you have any questions or concerns If you have any questions or concerns please do not hesitate to contact me. The office is [phone]. This note is constructed using voice recognition software. While every effort has been made to ensure accuracy orthotic and prosthetic technician errors may have been included. Yours sincerely, MITCH Barba Coding Level of Care Code New Pt Level 3 (06365) Diagnoses Gross hematuria R31.0 Incomplete bladder emptying R33.9 CPT Codes Post Residual Void - PVR CPT Code: 82601-Kscg Void Residual by ultrasound ([id number])
== END 2025-01-02 15:26 | disposition home or self-care (01) ==
PROVIDERS: Visit Provider Nurse Practitioner Family
DX: R31.0 Gross hematuria (principal); R33.9 Retention of urine, unspecified
CPT/HCPCS: 99203

== ENCOUNTER → 2025-01-02 14:30 | Outpatient (BNVA) | payer OTHER, SELFPAY | PROVIDERS: Visit Provider Nurse Practitioner Family | DX: R31.0 Gross hematuria (principal); R33.9 Retention of urine, unspecified; I10 Essential (primary) hypertension | CPT/HCPCS: 51798; 99202 ==

== ENCOUNTER 2025-02-06 09:50 | Outpatient (AMB) | payer MEDICARE, SELFPAY ==
[2025-02-06 10:04] VITALS: BP 124/76; PULSE 76; RESP 18; TEMP 36.6; O2SAT 99; BMI 26.3
--- NOTE | 2025-02-06 10:04 | MHC.PC.OV ---
Vital Signs 02/06/25 10:04 Height 5 ft 5.5 in Weight 160 lb 6.4 oz BMI 26.3 BP 124/76 Blood Pressure Location Lt brachial Position Sitting Respiration 18 Pulse 76 Pulse Source Pulse Oximeter Temp 97.9 F Temp Source Oral Pulse Oximetry (%) 99 Oxygen Delivery Method Room Air Intake Visit Reasons: 3 Month F/U Records Management Associate Required: No Fabrication Specialist: Not Required per policy Accompanied by: Self / Same As Patient Allergies No Known Allergies Allergy (Verified 02/06/25 10:39) Medication List - Last Reconciled 02/06/25 by ROLF Mendez hydrochlorothiazide 12.5 mg PO DAILY levothyroxine 150 mcg PO DAILY lisinopril 40 mg PO DAILY metformin 1,000 mg (2 x 500 mg) PO BID tamsulosin (Flomax) 0.4 mg PO BEDTIME Tobacco use date assessed: 02/06/25 Fall risk assessment: No Falls in past year Last assessed Fall Risk: 02/06/25 Dental Screening Dental Screen Date: 02/06/25 Did you have a dental visit in the last 12 months?: No Did you have a dental problem in the last 6 months where you did not have access to dental care?: No Was dental information given to patient?: No HPI 3 Month F/U HPI Details The patient is a 64-year-old male presenting for a follow-up on Type 2 Diabetes Mellitus and Hypertension. He has experienced significant improvement in glycemic control with a decline in HbA1c from 9.7% to 7.4%, reflecting the effectiveness of current diabetes management strategies. Historically, the patient maintained HbA1c levels around 7, indicating previous positive control. The objective is to further reduce these levels below 7. Additionally, his blood pressure remains well-controlled, with a recent reading of 124/76 mmHg. The patient has successfully managed nocturia with Flomax and scheduled cystectomy. [facility] Medical History Stroke HTN (hypertension) Type II diabetes mellitus Thyroid cancer Hx pulmonary embolism Surgical History S/P hemorrhoidectomy S/P hernia surgery Family History Father Stroke Type II diabetes mellitus HTN (hypertension) Social History Housing: Apartment Patient Tobacco Use Status: Never used Tobacco e-Cigarette/Vaping Use: Never Used service: No Current occupational status: employed and retired Cognitive needs: No Hearing needs: No Vision needs: No Questionnaire Thrive Questionnaire Date Thrive assessed: 02/06/25 I am a: Patient What is your living situation today?: I have a steady place to live Within the past 12 months, did the food you bought not last and you didn't have the money to get more?: Sometimes True Within the past 12 months, did you worry whether your food would run out before you got money to buy more?: Sometimes True Do you have trouble paying for medicines?: Yes Do you have trouble getting transportation to medical appointments?: No Do you have trouble paying your heating and electricity bill?: No Do you have trouble taking care of your child, family member or friend?: No Do you have trouble with day-to-day activities such as bathing, preparing meals, shopping, managing finances, etc.?: No Are you currently unemployed and looking for a job?: No Are you interested in more education?: No Please select the resources that you would like help with: None Currently or been in a relationship where the following occur: No concerns reported THRIVE Score: 2 AUDIT C Alcohol Use Questionnaire (AUDIT-C) 1. How often do you have a drink containing alcohol?: Never Total Score: 0 Score Reviewed/Action Taken: No ELIDA-7 AMB Questionnaire ELIDA-7 Date ELIDA - 7 assessed: 10/24/24 Source: Developed by Drs. Javier Johnson, Aurea Coe, James Contreras and colleagues, with an educational alicja from [employer]. Review of Systems Const Denies headache(s) Eyes Denies loss of vision ENT Denies vertigo, Denies dizziness, Denies headache(s) and Denies sore throat Card Denies chest pain, Denies leg edema and Denies lightheadedness Resp Denies cough, Denies hemoptysis and Denies wheezing GI Denies abdominal pain, Denies melena, Denies constipation, Denies diarrhea and Denies vomiting Denies dysuria, Denies urinary frequency and Denies urinary urgency Musc Denies arthralgias, Denies joint swelling, Denies numbness and Denies tingling Neuro Denies Abnormal speech present, Denies behavioral changes, Denies vertigo, Denies dizziness, Denies headache(s), Denies loss of vision, Denies memory loss, Denies numbness and Denies tingling Psych Denies anxiety, Denies behavioral changes, Denies depression, Denies memory loss and Denies panic attacks Cameron/Lymph Denies easy bleeding and Denies easy bruising Aller/Immun Denies wheezing Physical exam (Primary Care) Vital Signs: Last Vital Signs Temp 97.9 F 02/06/25 10:04 Pulse 76 02/06/25 10:04 Resp 18 02/06/25 10:04 BP 124/76 02/06/25 10:04 Pulse Ox 99 02/06/25 10:04 Oxygen Delivery Method Room Air 02/06/25 10:04 BMI result Body Mass Index 26.3 Tobacco/Smoking Status: Tobacco use Status Tobacco use date assessed 02/06/25 02/06/25 10:07 Patient Tobacco Use Status Never used Tobacco 02/06/25 10:07 e-Cigarette/Vaping Use Never Used 02/06/25 10:07 Thrive Assessment: Date of Thrive Assessment Date Thrive assessed 02/06/25 02/06/25 10:07 Currently or been in a relationship where the following occur: No concerns reported Const General: healthy appearing, no acute distress, alert and awake Nutritional Appearance: well nourished Orientation/consciousness: oriented to person, oriented to place and oriented to time HENMT Ears: TM's normal bilaterally General nose exam: Normal nasal mucous membranes and turbinates present Eyes Conjunctivae: conjunctivae normal Sclerae: sclerae normal Pupils: Equal, round and reactive pupils present Neck Neck: Yes no lymphadenopathy and Yes no JVD Thyroid: Thyroid normal Carotids: no bruits Resp Effort & Inspection: normal respiratory effort and not tachypneic Auscultation: no crackles, no rales, no rhonchi and no wheezes Cardio Rate: regular rate Rhythm: regular rhythm Heart sounds: no murmurs and normal S1 and S2 GI Palpation (GI): Soft to palpation, nontender, no hepatomegaly and no splenomegaly Auscultation: normal bowel sounds Skin General skin exam: no rashes or lesions noted and dry skin Neuro General: oriented to person, oriented to place and oriented to time Cranial nerves: Yes Equal, round and reactive pupils present Speech: No Abnormal speech present Gait exam (Neuro): Normal gait present Motor exam (neuro): no tremor noted Extrem Right upper extremity: full ROM Left upper extremity: full ROM Right lower extremity: full ROM; no edema Left lower extremity: full ROM; no edema Psych Mental Status: mental status grossly normal Speech and movement: Normal speech and movement present Affect: normal affect Attitude: cooperative Thought process: Normal thought process present Results AMB Hemoglobin A1c AMB Hemoglobin A1c 7.4 % Last Edit by Rosibel Sumner CMA on 02/06/25 10:19 Results Reviewed Results Reviewed: Laboratory Last Values Hgb A1c (Clinic) 7.4 % (4.0-6.0) H 02/06/25 10:08 Coding Level of Care Code Est Pt Level 4 (32093) Diagnoses Type 2 diabetes mellitus without complication, without long-term current use of insulin E11.9 Diabetes mellitus termite inspector insulin use: without termite inspector use Diabetes mellitus complication status: without complication Benign essential HTN I10 Acquired hypothyroidism E03.9 Elevated PSA R97.20 Idiopathic hematuria, unspecified whether glomerular morphologic changes present N02.9 Hematuria type: idiopathic Glomerular morphologic changes: unspecified whether glomerular morphologic changes present Time Spent (min) 36 Assessment & Plan Assessment & Plan (1) Type II diabetes mellitus: Comment: father Code(s): E11.9 - Type 2 diabetes mellitus without complications Category: Medical Qualifiers: Diabetes mellitus intermediate insulin use: without intermediate use Diabetes mellitus complication status: without complication Qualified Code(s): E11.9 - Type 2 diabetes mellitus without complications Plan: A1c 7.4% in office, went from 9.7% on previous visit. At that time metformin a 1000 mg b.i.d. was started. We will continue this dose and have the patient repeat labs in months Reinforced low sugar/carbohydrate diet and activity as tolerated (2) Benign essential HTN: Code(s): I10 - Essential (primary) hypertension Category: Medical Plan: Blood pressure is within normal limits in office Reinforced dash diet Continue lisinopril 40 mg daily, hydrochlorothiazide 12.5 mg daily (3) Acquired hypothyroidism: Code(s): E03.9 - Hypothyroidism, unspecified Category: Medical Plan: The patient not complete preordered labs and will get these done as soon as possible Continue levothyroxine 150 mcg daily (4) Elevated PSA: Code(s): R97.20 - Elevated prostate specific antigen [PSA] Category: Medical Plan: The patient has been followed by Urology. He is on Flomax 0.4 mg at bedtime And has a pending cystoscopy to further evaluate (5) Hematuria: Code(s): R31.9 - Hematuria, unspecified Category: Medical Qualifiers: Hematuria type: idiopathic Glomerular morphologic changes: unspecified whether glomerular morphologic changes present Qualified Code(s): N02.9 - Recurrent and persistent hematuria with unspecified morphologic changes Plan: Patient did not complete follow up urinalysis as yet Encouraged completing preordered labs and urine Plan Patient to return in 3 months. Complete pre reorder labs a week before appointment Orders: Orders Complete Blood Count Auto Diff 3 Months E03.9 - Hypothyroidism, unspecified, E11.9 - Type 2 diabetes mellitus without complications, I10 - Essential (primary) hypertension, K59.01 - Slow transit constipation, N02.9 - Recurrent and persistent hematuria with unspecified morphologic changes Lipid Panel 3 Months E03.9 - Hypothyroidism, unspecified, E11.9 - Type 2 diabetes mellitus without complications, I10 - Essential (primary) hypertension, K59.01 - Slow transit constipation, N02.9 - Recurrent and persistent hematuria with unspecified morphologic changes TSH reflex Free T4 3 Months E03.9 - Hypothyroidism, unspecified, E11.9 - Type 2 diabetes mellitus without complications, I10 - Essential (primary) hypertension, K59.01 - Slow transit constipation, N02.9 - Recurrent and persistent hematuria with unspecified morphologic changes Hemoglobin A1c 3 Months E03.9 - Hypothyroidism, unspecified, E11.9 - Type 2 diabetes mellitus without complications, I10 - Essential (primary) hypertension, K59.01 - Slow transit constipation, N02.9 - Recurrent and persistent hematuria with unspecified morphologic changes AMB Hemoglobin A1c Today E11.9 - Type 2 diabetes mellitus without complications Comprehensive [place]. Panel Fast 3 Months E03.9 - Hypothyroidism, unspecified, E11.9 - Type 2 diabetes mellitus without complications, I10 - Essential (primary) hypertension, K59.01 - Slow transit constipation, N02.9 - Recurrent and persistent hematuria with unspecified morphologic changes UA CC w/rflx Micro + Cult 3 Months E03.9 - Hypothyroidism, unspecified, E11.9 - Type 2 diabetes mellitus without complications, I10 - Essential (primary) hypertension, K59.01 - Slow transit constipation, N02.9 - Recurrent and persistent hematuria with unspecified morphologic changes Vitamin D 25-OH Total 3 Months E03.9 - Hypothyroidism, unspecified, E11.9 - Type 2 diabetes mellitus without complications, I10 - Essential (primary) hypertension, K59.01 - Slow transit constipation, N02.9 - Recurrent and persistent hematuria with unspecified morphologic changes
== END 2025-02-06 10:50 | disposition home or self-care (01) ==
DX: E11.9 Type 2 diabetes mellitus without complications (principal)

== ENCOUNTER → 2025-02-06 09:50 | Outpatient (BNVA) | payer OTHER, SELFPAY | DX: E11.9 Type 2 diabetes mellitus without complications (principal); I10 Essential (primary) hypertension; E03.9 Hypothyroidism, unspecified; R97.20 Elevated prostate specific antigen [PSA]; N02.9 Recurrent and persistent hematuria with unspecified morphologic changes; K59.01 Slow transit constipation | CPT/HCPCS: 83036; 99212 ==

== ENCOUNTER 2025-02-28 06:26 | Outpatient (REF) | payer MEDICARE, SELFPAY ==
[2025-02-28 07:33] LABS: Blood Urea Nitrogen 33 mg/dL (9-16); Estimated Glomerular Filt Rate > 60
== END 2025-02-28 06:27 | disposition home or self-care (01) ==
LOC: HO.LAB 06:26
PROVIDERS: Visit Provider Nurse Practitioner Family
DX: R31.0 Gross hematuria (principal)
CPT/HCPCS: 36415; 82565; 84520

== ENCOUNTER 2025-03-05 08:00 | Outpatient (REF) | payer MEDICARE, SELFPAY ==
--- NOTE | ~2025-03-05 | CT_ITS ---
CLINICAL HISTORY: R31.0 - Gross hematuria CT abdomen and pelvis with and without contrast Comparison: None provided Findings: No consolidation or effusion. There is adrenal hyperplasia. There is mild dilatation of the left central renal collecting system without roger hydronephrosis. A 1 cm calculus is seen within the right extrarenal pelvis. There is mild hydronephrosis. A small cyst arises from the lower pole of the right kidney. The gallbladder in the rest of the solid organs are unremarkable. There is a right inguinal hernia containing a loop of small bowel. There is no evidence of incarceration or bowel obstruction. The appendix is not identified. There is no evidence of appendicitis. The bones are intact. The rest of the GI tract is unremarkable. IMPRESSION: 1. Large calculus within the right renal pelvis with mild hydronephrosis. 2. Right inguinal hernia containing a loop of small bowel without evidence of bowel obstruction or incarceration. This document has been electronically signed by: Anton Elizabeth MD on 03/06/2025 08:15:36
[2025-03-05] MEDS: iohexoL 350 MG/ML 100 ML INFUS..BTL 85 ML IV (09:20)
== END 2025-03-05 08:01 | disposition home or self-care (01) ==
LOC: HO.CT 08:00
PROVIDERS: Visit Provider Nurse Practitioner Family
DX: R31.0 Gross hematuria (principal)
CPT/HCPCS: 74178; Q9967

== ENCOUNTER → 2025-03-05 08:02 | Outpatient (BNV) | payer MEDICARE, SELFPAY | PROVIDERS: Visit Provider Radiology Diagnostic Radiology | DX: N20.0 Calculus of kidney (principal); K40.31 Unilateral inguinal hernia, with obstruction, without gangrene, recurrent | CPT/HCPCS: 74178 ==

== ENCOUNTER 2025-03-07 09:18 | Outpatient (AMB) | payer MEDICARE, SELFPAY ==
--- NOTE | 2025-03-07 09:19 | MHC.OFFVIS ---
Intake Visit Reasons: cysto Intake Note: Patient is present for cystoscopy MICROSCOPIC HEMATURIA Urology Medication:TAMSULOSIN Antibiotic Allergy:NONE Blood Thinner:NONE Hospitality Internship Required: No Allergies No Known Allergies Allergy (Verified 03/07/25 09:21) Medication List - Last Reconciled 03/07/25 by Mega Mott MD hydrochlorothiazide 12.5 mg PO DAILY levothyroxine 150 mcg PO DAILY lisinopril 40 mg PO DAILY metformin 1,000 mg (2 x 500 mg) PO BID tamsulosin (Flomax) 0.4 mg PO BEDTIME HPI Comments Details: 03/07/25--Here for cystoscopy-- Cystoscopy findings: prostatic urethra bilobar enlargement bulbous urethra WNL, no suspicious bladder lesions visualized. - The patient is a 64-year-old male presenting with hematuria. - Hematuria: The patient has been experiencing blood in the urine, which was initially evaluated with a CT scan revealing a kidney stone. - Nephrolithiasis: A CT scan identified a large kidney stone over one centimeter in the right kidney, contributing to the hematuria. - Prostatic hypertrophy: The patient is on tamsulosin for urinary flow. - Inguinal hernia: The patient has a right-sided inguinal hernia. Urinary Symptoms Review - Urinary flow: Improved with tamsulosin. Results - CT Scan: Large kidney stone over one centimeter in the right kidney. - Cystoscopy today: Normal bladder appearance, enlarged prostate, bladder wall thickening. Plan - Arrange Shockwave Lithotripsy for the Right kidney stone, - Advise the patient to maintain high fluid intake to facilitate stone passage and prevent further stone formation. - Conduct a 24-hour urine collection with results to guide dietary recommendations. - Discussed dietary modifications to limit oxalate intake, including reducing tea consumption and moderating intake of oxalate-rich foods. 01/02/25--Nilesh is a very pleasant 64-year-old male patient of Dr. Yoon. He has a past medical history of hypertension, type 2 diabetes, thyroid cancer, and pulmonary embolism. He presents to the office today as a new patient for gross hematuria. In discussion with the patient today he reports having followed up with his PCP for ongoing urinary issues he had been experiencing at which time urinalysis noted microscopic hematuria and recommendations were made for urology referral for further assessment evaluation. He reports having initiated Flomax with PCP and feels this has been helpful in episodes of urinary hesitancy and weak urinary stream he had been experiencing. However he describes an episode of gross hematuria approximately 2 weeks ago. He reports this was a solitary event. Unable to obtain urine for urinalysis today however PVR 190 mL. We discussed potential causes of gross hematuria, incomplete bladder emptying, and lower urinary tract symptoms patient was experiencing. When asked he denies any known workplace chemical exposure and or nicotine dependence. We discussed obtaining further imaging. In review of patient's chart it appears urine cytology 11/12 Negative for high-grade urothelial carcinoma. I discussed reasons for blood in the urine may include but are not limited to kidney stones, cancer in the urinary tract, BPH, kidney stone disease or inflammatory conditions of the urinary tract. I have discussed workup to include cystoscopy evaluation. In review of patient's chart it appears PSA 11/12 3.9. Discussion Notes During the visit, I discussed the finding of gross hematuria with the patient. I explained the difference between microscopic and gross hematuria and emphasized that gross hematuria warrants further investigation. I recommended obtaining a CT scan of the kidneys and bladder for further assessment evaluation. I also discussed the safety and efficacy of performing a cystoscopy to inspect the bladder, providing reassurance about the procedure's duration, and risks and benefits. The patient was informed of the need for this diagnostic evaluation due to the presence of visible blood. We reviewed his current use of tamsulosin, which he finds beneficial. No further questions or concerns were expressed by the patient at this time. Plan--The management plan involves conducting a CT scan of the kidneys and bladder to evaluate for urinary tract abnormalities due to gross hematuria. Upon finding any abnormalities or if gross hematuria persists, a cystoscopy will be performed to directly examine the bladder. I will ensure the patient is adequately informed about the procedural details, expected benefits, and risk, securing his consent. The patient is encouraged to maintain the use of tamsulosin as it ameliorates his current symptoms. Further management steps will be considered based on the results of these investigations. [facility] Medical History (Updated 04/23/25 @ 10:27 by Mega Mott MD) Hypothyroid Diabetes Thyroid cancer Hx pulmonary embolism Surgical History (Updated 04/21/25 @ 14:17 by Robina Carney RN) Hx of thyroidectomy S/P hemorrhoidectomy S/P hernia surgery Family History Father Stroke Type II diabetes mellitus HTN (hypertension) Social History Housing: Apartment Patient Tobacco Use Status: Never used Tobacco e-Cigarette/Vaping Use: Never Used Use of substances other than those prescribed or required for medical reasons: No Advance Directives: No Advance Directives Information Provided: Yes service: No Current occupational status: employed and retired Cognitive needs: No Hearing needs: No Vision needs: No Review of Systems Const All systems reviewed & are unremarkable except as noted in HPI and below Reports no additional complaints Eyes Reports no additional complaints ENT Reports no additional complaints Card Reports no additional complaints Resp Reports no additional complaints GI Reports no additional complaints Reports as per HPI Musc Reports no additional complaints Skin/Breast Reports system reviewed and no additional complaints, except as documented Neuro Reports no additional complaints Psych Reports no additional complaints Endo Reports no additional complaints Cameron/Lymph Reports no additional complaints Aller/Immun Reports no additional complaints Office Procedures Cystoscopy Consent Discussed risk and benefit or proposed procedure with the patient. Information consent for procedure given to the patient. Discussed technical aspects, risks, benefits and alternatives in full. Addressed all of the patient's questions and concerns regarding the procedure. The patient demonstrated knowledge and understanding. They wish to proceed with this procedure. Preparation The patient was prepped in the usual manner. A manager park was present and in the room. Genitalia was prepped with betadine solution in a sterile manner. Lidocaine Jelly 2% was placed into the urethra and 16Fr flexible Olympus cystoscope was inserted into the meatus after adequate lubrication. Procedure Time out per protocol performed. The flexible cystoscope is passed transurethrally: The bladder was inspected in its entirety with utilization retroflexion displaying: Tumor(s): no suspicious bladder lesions visualized Trabeculation: Mild to Moderate Mucosal Erthema: NA Orifices: normal shape and position Urethra: normal Cystoscopy findings: prostatic urethra bilobar enlargement bulbous urethra WNL, no suspicious bladder lesions visualized [id number] DISPOSABLE SCOPE URO-G FLEXIBLE SCOPE Procedure code (CPT) selection complete Office Meds lidocaine HCl 2 % mucosal jelly in applicator Performing Provider: Mega Mott MD Performing Location: [facility] Administered by: Cristofer Saenz LPN on 03/07/25 09:30 Dose Route Admin Location Dispensed Lot Number Expiration Date NDC Information Tech 10 mL intra-urethral 20 mL nitrofurantoin monohydrate/macrocrystals 100 mg capsule Performing Provider: Mega Mott MD Performing Location: [facility] Administered by: Cristofer Saenz LPN on 03/07/25 09:30 Dose Route Admin Location Dispensed Lot Number Expiration Date NDC Information Tech 100 mg PO 1 cap phenazopyridine 200 mg tablet Performing Provider: Mega Mott MD Performing Location: [facility] Administered by: Cristofer Saenz LPN on 03/07/25 09:30 Dose Route Admin Location Dispensed Lot Number Expiration Date NDC Information Tech 200 mg PO 1 tab Results Reviewed Results Reviewed: Date of Service: 03/05/25 Procedure(s): CT urogram Accession Number(s): [id number] cc: Reena Olea-BC; René Yoon-C~ Report Number: [id number]: Total DLP = 488.00 mGy-cm CLINICAL HISTORY: R31.0 - Gross hematuria CT abdomen and pelvis with and without contrast Comparison: None provided Findings: No consolidation or effusion. There is adrenal hyperplasia. There is mild dilatation of the left central renal collecting system without roger hydronephrosis. A 1 cm calculus is seen within the right extrarenal pelvis. There is mild hydronephrosis. A small cyst arises from the lower pole of the right kidney. The gallbladder in the rest of the solid organs are unremarkable. There is a right inguinal hernia containing a loop of small bowel. There is no evidence of incarceration or bowel obstruction. The appendix is not identified. There is no evidence of appendicitis. The bones are intact. The rest of the GI tract is unremarkable. IMPRESSION: 1. Large calculus within the right renal pelvis with mild hydronephrosis. 2. Right inguinal hernia containing a loop of small bowel without evidence of bowel obstruction or incarceration. Assessment & Plan Assessment & Plan (1) BPH (benign prostatic hyperplasia): Code(s): N40.0 - Benign prostatic hyperplasia without lower urinary tract symptoms Category: Medical (2) Kidney stone: Code(s): N20.0 - Calculus of kidney Category: Medical Plan 24 hour urine, right ESWL Cont tamsulosin Orders: Orders AMB Cystoscopy 03/07/25 N02.9 - Recurrent and persistent hematuria with unspecified morphologic changes, R34 - Anuria and oliguria, R33.9 - Retention of urine, unspecified Patient Instructions: The patient had an opportunity to ask questions regarding treatment plan. The patient expressed understanding and agreement with the above treatment plan. The patient is aware they should contact our office by phone for worsening of their current condition or the appearance of new symptoms. Compliance is encouraged with any medications and followup testing that is ordered. It is a privilege to be allowed the opportunity to participate in the urologic care of your patient. If you have any questions or concerns regarding treatment for the above conditions please do not hesitate to contact me. The office telephone contact is [phone]. This note is constructed in part using voice recognition software. While every effort has been made to ensure accuracy branding machine tender errors may have been included. Yours sincerely, Mega Mott MD Scribe Plan - Not visible on output: Patient was informed and verbally consented to the use of an ambient scribe for clinic note documentation during this visit. Coding Level of Care Code Est Pt Level 4 (67128) Diagnoses BPH (benign prostatic hyperplasia) N40.0 Kidney stone N20.0 CPT Codes Cystoscopy - CPT: 89806-[id number] ([id number])
== END 2025-03-07 10:36 | disposition home or self-care (01) ==
LOC: HO.HUSH 09:19
PROVIDERS: Visit Provider Urology
DX: N40.0 Benign prostatic hyperplasia without lower urinary tract symptoms (principal); N20.0 Calculus of kidney
CPT/HCPCS: 52000; 99214

== ENCOUNTER → 2025-03-07 09:18 | Outpatient (BNVA) | payer MEDICARE, SELFPAY | PROVIDERS: Visit Provider Urology | DX: N02.9 Recurrent and persistent hematuria with unspecified morphologic changes (principal); R34 Anuria and oliguria; N40.0 Benign prostatic hyperplasia without lower urinary tract symptoms; N20.0 Calculus of kidney; Z79.899 Other long term (current) drug therapy | CPT/HCPCS: 52000; 99212 ==

== ENCOUNTER 2025-04-15 06:05 | Outpatient (REF) | payer MEDICARE, SELFPAY ==
[2025-04-15 06:34] LABS: MANUAL DIFF FLAG NO
[2025-04-15 07:21] LABS: Hematocrit 39.6 % (42.0-52.0); Hemoglobin 13.1 g/dl (14.0-18.0); Imm Gran Abs Auto 0.03 X10*3/uL (0.00-0.03); Imm Gran Pct Auto 0.4 % (0.0-0.4); Lymphocytes Absolute Auto 1.5 X10*3/uL (1.2-4.9); Mean Corpuscular HGB Conc 33.1 g/dl (31.0-36.0); Mean Corpuscular Hemoglobin 26.0 pg (27.0-33.0); Mean Corpuscular Volume 78.7 fL (80.0-98.0); NRBC Abs Auto 0.000 X10*3/uL (0.0-0.012); NRBC Pct Auto 0.0 /100WBC (0.0-0.2); Platelet Count 258 X10*3/uL (160-400); Red Blood Count 5.03 X10*6/uL (4.60-5.80); White Blood Count 7.8 X10*3/uL (4.8-10.8)
[2025-04-15 07:28] LABS: Hemoglobin A1C 245.4619 umol/L; Total Hemoglobin (HGBA1C) 3504.7488 umol/L
[2025-04-15 07:29] LABS: Appearance Urine Clear; Glucose Urine UA >=1000 mg/dL (Negative); PH 6.0 (5.0-9.0); Specific Gravity - Urine 1.020 (1.005-1.025); UMIC TRIGGER UACC YES
[2025-04-15 07:53] LABS: Alanine Aminotransferase 17 U/L (0-40); Albumin Level 4.2 g/dL (3.5-5.0); Alkaline Phosphatase 87 U/L (39-117); Anion Gap 12 (12-20); Aspartate Amino Transferase 16 U/L (5-37); Blood Urea Nitrogen 36 mg/dL (9-16); Calcium 9.3 mg/dL (8.4-10.2); Carbon Dioxide 29 mmol/L (22-29); Chloride 104 mmol/L (96-108); Cholesterol 220 mg/dL (<200); Estimated Glomerular Filt Rate > 60; HDL Cholesterol 59 mg/dL (>40); Potassium 3.8 mmol/L (3.3-5.1); Sodium 141 mmol/L (135-145); Total Protein 6.9 g/dL (6.5-8.0); Triglycerides 138 mg/dL (<150)
[2025-04-15 08:47] LABS: Free T4 (Free Thyroxine) 1.24 ng/dL (0.71-1.85)
== END 2025-04-15 06:06 | disposition home or self-care (01) ==
LOC: HO.LAB 06:05
DX: Z00.00 Encounter for general adult medical examination without abnormal findings (principal); E11.9 Type 2 diabetes mellitus without complications; E03.9 Hypothyroidism, unspecified; I10 Essential (primary) hypertension; N02.9 Recurrent and persistent hematuria with unspecified morphologic changes; K59.01 Slow transit constipation
CPT/HCPCS: 36415; 80053; 80061; 81001; 82306; 83036; 84439; 84443; 85025

== ENCOUNTER 2025-04-23 08:51 | Day surgery (SDC) | payer MEDICARE, SELFPAY ==
[2025-04-21 14:16] VITALS: BMI 26.3
--- NOTE | 2025-04-22 09:20 | HO.ANESPROP2 ---
Documented by User: Laura Kaminski NP 04/22/25 09:21 HPI - Anesthesia Eval Consult details Narrative: 64yo M for Right Lithotripsy ESW PMFSH Active Problems Active Problems: All Active Problems Incomplete bladder emptying (Acute) Gross hematuria (Acute) Decreased urine output (Acute) Right groin hernia (Acute) Hematuria (Acute) Elevated PSA (Acute) Decreased hearing of both ears (Acute) Ringing in right ear (Acute) Constipation (Acute) Bilateral impacted cerumen (Acute) Acquired hypothyroidism (Acute) Benign essential HTN (Acute) Annual physical exam (Acute) Type II diabetes mellitus (Acute) Past Medical History Medical History (Updated 04/21/25 @ 14:17 by Robina Carney RN) Hypothyroid Diabetes Thyroid cancer Hx pulmonary embolism Family History Family History Father Stroke Type II diabetes mellitus HTN (hypertension) Surgical History Surgical History (Updated 04/21/25 @ 14:17 by Robina Carney RN) Hx of thyroidectomy S/P hemorrhoidectomy S/P hernia surgery Social History Social History Housing: Apartment Patient Tobacco Use Status: Never used Tobacco e-Cigarette/Vaping Use: Never Used Use of substances other than those prescribed or required for medical reasons: No Advance Directives: No Advance Directives Information Provided: Yes service: No Current occupational status: employed and retired Cognitive needs: No Hearing needs: No Vision needs: No Meds Allergies Allergy/AdvReac Type Severity Reaction Status Date / Time No Known Allergies Allergy Verified 03/07/25 09:21 Exam Height,Weight and Vital Signs: Height 5 ft 5.5 in Weight 72.756 kg Pertinent Lab Results Pertinent Lab Results: Laboratory Tests 04/15/25 06:32 WBC 7.8 Hgb 13.1 L Hct 39.6 L Plt Count 258 Sodium 141 Potassium 3.8 Chloride 104 Carbon Dioxide 29 BUN 36 H Creatinine 0.95 Assessment and Plan Assessment Anesthesia Assessment: Chart Reviewed Documented by User: Madhuri Allen MD 04/23/25 09:32 PMFSH Past Medical History Medical History (Updated 04/21/25 @ 14:17 by Robina Carney, RN) Hypothyroid Diabetes Thyroid cancer Hx pulmonary embolism Family History Family History Father Stroke Type II diabetes mellitus HTN (hypertension) Family history of problems with anesthesia: No Surgical History Surgical History (Updated 04/21/25 @ 14:17 by Robina Carney RN) Hx of thyroidectomy S/P hemorrhoidectomy S/P hernia surgery History of Problems with Anesthesia: No Social History Social History Housing: Apartment Patient Tobacco Use Status: Never used Tobacco e-Cigarette/Vaping Use: Never Used Use of substances other than those prescribed or required for medical reasons: No Advance Directives: No Advance Directives Information Provided: Yes service: No Current occupational status: employed and retired Cognitive needs: No Hearing needs: No Vision needs: No Meds Allergies Allergy/AdvReac Type Severity Reaction Status Date / Time No Known Allergies Allergy Verified 03/07/25 09:21 Exam Airway Mallampati Class: II TM Dist: >3cm Neck ROM: Full Heart: rrr Lungs: cta Assessment and Plan Assessment Anesthesia Assessment: Anesthesia Plan Discussed Final Anesthetic Review Family History of Problems with Anesthesia: No History of Problems with Anesthesia: No NPO: Yes ASA Class: II Final Preanesthetic Review: No Changes in Pt Med Stat, Meds/Allgs Chart Reviewed and Consent Obtained/Reviewed Patient Risk: Low Procedure Risk: Low Anesthetic Plan Anesthetic Plan: GA Disposition: Standard PACU
[2025-04-23] VITALS (7 sets, daily range): BP systolic 102–154; BP diastolic 68–85; PULSE 67–85; RESP 16–18; TEMP 36.2–36.8; O2SAT 93–99; BMI 26.9
--- NOTE | ~2025-04-23 | XR_ITS ---
EXAMINATION: XR ABDOMEN KUB CLINICAL INDICATION: pre Right ESWL COMPARISON: None. Correlation made with CT abdomen and pelvis dated 04/04/2025. TECHNIQUE: AP view of the abdomen. FINDINGS: Bowel gas pattern is normal/nonspecific. There is no focally dilated loop. There is an 11 x 8 mm calculus overlying the region of the right renal pelvis, similar to the recent CT examination. No additional radiopaque abnormal calcifications present. No organomegaly or large abdominal mass. Limited imaging of the lung bases demonstrates no abnormality. The bony structures appear normal. 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 XR/XR KUB IMPRESSION: There is an 11 x 8 mm calculus projecting over the region of the right renal pelvis. Electronically signed by: Seamus Bravo MD 04/23/2025 09:22 AM EDT
[2025-04-23 09:35] LABS: Glucose, Whole Blood 185 mg/dL (60-115)
[2025-04-23] MEDS: Lactated Ringers 1,000 ML 100 ML IVCONT (09:36)
--- NOTE | 2025-04-23 10:32 | ECG_ITS ---
Test Reason : PRE OP Blood Pressure : */* mmHG Vent. Rate : 70 BPM Atrial Rate : 70 BPM P-R Int : 146 ms QRS Dur : 76 ms QT Int : 400 ms P-R-T Axes : 11 -15 7 degrees QTcB Int : 432 ms Normal sinus rhythm Inferior infarct , age undetermined Abnormal ECG No previous ECGs available Referred By: Madhuri Allen Electronically Signed By: SARA MANRIQUE
--- NOTE | 2025-04-23 11:08 | MHC.SHP ---
Pre-Procedural Eval Section A - 24 Hr Update-Section A only Date of Service: 04/23/25 The patient is an INPATIENT: No The patient has been examined within 24 hours of the surgical procedure. The History & Physical has been completed within 30 days and I have reviewed it.: Yes Section B - Complete if H&P > 30 days Chief Complaint: Calculus of kidney, right Allergies: Allergies Allergy/AdvReac Type Severity Reaction Status Date / Time No Known Allergies Allergy Verified 03/07/25 09:21 Plan Diagnosis/Plan: Unchanged I have reviewed the history and physical and performed a pertinent physical examination on my patient. No changes have occurred unless specified. Right ESWL. Discussed risks to include but not limited to, blood in the urine, bruising to the skin, kidney hematoma, possible need for another procedure if a stone fragment obstructs the ureter while passing, possible need to repeat procedure if stone is not completely fragmented. Time Spent With Patient Time: Total time managing care of this patient today ____ minutes.
--- NOTE | 2025-04-23 11:10 | W.PM.OPN ---
Operative Note Operative Note Date of Service: 04/23/25 Narrative: PreOperative Diagnosis:? ? Right Renal stone Post Operative Diagnosis:?Right? Renal stone Procedure:?Right? ESWL Surgeon:?Dr Mega Mott Anesthesia:? General Indications for procedure: The patient understands there is a risk of bruising or hematoma to the kidney, infection, and stone migration following the procedure and subsequent intervention may be required.? - Imaging 10mm x6 mm stone Procedure: After informed consent was verified the patient was brought to the operating room and placed in a supine position.? Anesthesia was performed per protocol. Safety pause time-out was performed. Imaging was displayed in the room and laterality confirmed. ESWL was performed.?The stone was visualized on both fluoroscopy and ultrasound.? Shockwave lithotripsy was performed, with a maximum rate of 120 hertz. After the first 300 shocks a pause for 3 minutes was completed.? A total of 2500 shocks to a maximum of power of 20. After 1000 shocks, the Hz was decreased from 120 to 60.? No significant change in stone density appreciated on imaging during treatment The patient tolerated the procedure well and was transferred to the recovery area upon completion. Complications: None
== END 2025-04-23 13:01 | disposition home or self-care (01) ==
PROVIDERS: Visit Provider Urology
PROC: (CPT 50590; principal; 2025-04-23 10:50)
DX: N20.0 Calculus of kidney (principal); N40.0 Benign prostatic hyperplasia without lower urinary tract symptoms; I10 Essential (primary) hypertension; E11.9 Type 2 diabetes mellitus without complications; Z85.850 Personal history of malignant neoplasm of thyroid; Z86.711 Personal history of pulmonary embolism; Z79.84 Long term (current) use of oral hypoglycemic drugs; Z79.899 Other long term (current) drug therapy; Z98.890 Other specified postprocedural states
CPT/HCPCS: 50590; 74018; 82947; 93005; J0131; J0690; J2003; J2704; J3010

== ENCOUNTER → 2025-04-23 08:51 | Outpatient (BNV) | payer MEDICARE, SELFPAY | PROVIDERS: Visit Provider Urology | DX: N20.0 Calculus of kidney (principal) | CPT/HCPCS: 50590 ==

== ENCOUNTER → 2025-04-23 09:05 | Outpatient (BNV) | payer MEDICARE, SELFPAY | PROVIDERS: Visit Provider Radiology Diagnostic Radiology | DX: N20.0 Calculus of kidney (principal) | CPT/HCPCS: 74018 ==

== ENCOUNTER → 2025-04-23 10:32 | Outpatient (BNV) | payer MEDICARE, SELFPAY | PROVIDERS: Visit Provider Internal Medicine | DX: R94.31 Abnormal electrocardiogram [ECG] [EKG] (principal); Z01.810 Encounter for preprocedural cardiovascular examination | CPT/HCPCS: 93010 ==

== ENCOUNTER 2025-05-03 07:35 | Outpatient (REF) | payer MEDICARE, SELFPAY ==
[2025-05-03 08:05] LABS: MANUAL DIFF FLAG NO
[2025-05-03 08:23] LABS: Hematocrit 40.0 % (42.0-52.0); Hemoglobin 13.0 g/dl (14.0-18.0); Imm Gran Abs Auto 0.05 X10*3/uL (0.00-0.03); Imm Gran Pct Auto 0.6 % (0.0-0.4); Lymphocytes Absolute Auto 1.3 X10*3/uL (1.2-4.9); Mean Corpuscular HGB Conc 32.5 g/dl (31.0-36.0); Mean Corpuscular Hemoglobin 25.8 pg (27.0-33.0); Mean Corpuscular Volume 79.5 fL (80.0-98.0); NRBC Abs Auto 0.000 X10*3/uL (0.0-0.012); NRBC Pct Auto 0.0 /100WBC (0.0-0.2); Platelet Count 271 X10*3/uL (160-400); Red Blood Count 5.03 X10*6/uL (4.60-5.80); White Blood Count 7.9 X10*3/uL (4.8-10.8)
[2025-05-03 08:33] LABS: Hemoglobin A1C 255.0628 umol/L; Total Hemoglobin (HGBA1C) 3483.3796 umol/L
[2025-05-03 08:37] LABS: Appearance Urine Clear; Glucose Urine UA 250 mg/dL (Negative); PH 5.5 (5.0-9.0); Specific Gravity - Urine 1.020 (1.005-1.025); UMIC TRIGGER UACC YES
[2025-05-03 09:16] LABS: Alanine Aminotransferase 20 U/L (0-40); Albumin Level 4.3 g/dL (3.5-5.0); Alkaline Phosphatase 87 U/L (39-117); Anion Gap 15 (12-20); Aspartate Amino Transferase 15 U/L (5-37); Blood Urea Nitrogen 33 mg/dL (9-16); Calcium 9.3 mg/dL (8.4-10.2); Carbon Dioxide 28 mmol/L (22-29); Chloride 100 mmol/L (96-108); Cholesterol 233 mg/dL (<200); Estimated Glomerular Filt Rate > 60; HDL Cholesterol 61 mg/dL (>40); Potassium 4.0 mmol/L (3.3-5.1); Sodium 139 mmol/L (135-145); Total Protein 7.2 g/dL (6.5-8.0); Triglycerides 108 mg/dL (<150)
[2025-05-03 10:17] LABS: Free T4 (Free Thyroxine) 1.21 ng/dL (0.71-1.85)
== END 2025-05-03 07:36 | disposition home or self-care (01) ==
LOC: HO.LAB 07:35
DX: I10 Essential (primary) hypertension (principal); E11.9 Type 2 diabetes mellitus without complications; E03.9 Hypothyroidism, unspecified; K59.01 Slow transit constipation; N02.9 Recurrent and persistent hematuria with unspecified morphologic changes
CPT/HCPCS: 36415; 80053; 80061; 81001; 82306; 83036; 84439; 84443; 85025

== ENCOUNTER 2025-05-08 10:22 | Outpatient (AMB) | payer MEDICARE, SELFPAY ==
--- NOTE | 2025-05-08 09:08 | A.OFFPC_ITS ---
Vital Signs 05/08/25 10:27 Height 5 ft 5.5 in Weight 165 lb 8 oz BMI 27.1 BP 122/74 Blood Pressure Location Lt brachial Position Sitting Pulse 90 Pulse Source Pulse Oximeter Temp 97.1 F Temp Source Temporal Artery Scan Pulse Oximetry (%) 98 Oxygen Delivery Method Room Air Intake Visit Reasons: dm/htn/hypothyroidism Allergies No Known Allergies Allergy (Verified 05/08/25 10:49) Medication List - Last Reconciled 05/08/25 by ROLF Mendez hydrochlorothiazide 12.5 mg PO DAILY levothyroxine 150 mcg PO DAILY linagliptin (Tradjenta) 5 mg PO DAILY lisinopril 40 mg PO DAILY metformin 1,000 mg (2 x 500 mg) PO BID tamsulosin (Flomax) 0.4 mg PO BEDTIME Tobacco use date assessed: 05/08/25 Fall risk assessment: No Falls in past year Last assessed Fall Risk: 05/08/25 Dental Screening Dental Screen Date: 05/08/25 Did you have a dental visit in the last 12 months?: No Did you have a dental problem in the last 6 months where you did not have access to dental care?: No Was dental information given to patient?: Patient declined HPI dm/htn/hypothyroidism HPI Details The patient is a 64-year-old male presenting with diabetes mellitus and tachycardia. The patient's diabetes mellitus was trending down from 9.4% to 8.6 %, but this has started trending the wrong direction 8.9%. The patient reports that the only thing he has been doing different, is eating a lot of fried foods. This also shows in the patient cholesterol, which has increased since last visit. The patient experienced episodes of tachycardia, notably during a lithotripsy procedure and once at home. During the procedure, the patient was fasting, which may have contributed to dehydration and the subsequent tachycardia. A Holter monitor is planned to further investigate these episodes. The patient has a history of hyperlipidemia, which is being monitored. Additionally, the patient has hypothyroidism, with recent lab results indicating a high TSH level, although T4 remains within normal range. The patient also has a history of kidney stones, which were recently managed with lithotripsy. [facility] Medical History Hypothyroid Diabetes Thyroid cancer Hx pulmonary embolism Surgical History Hx of thyroidectomy S/P hemorrhoidectomy S/P hernia surgery Family History Father Stroke Type II diabetes mellitus HTN (hypertension) Social History Housing: Apartment Patient Tobacco Use Status: Never used Tobacco e-Cigarette/Vaping Use: Never Used service: No Current occupational status: employed and retired Cognitive needs: No Hearing needs: No Vision needs: No Questionnaire PHQ-9 Over the last 2 weeks, how often have you been bothered by any of the following problems? 1. Little interest or pleasure in doing things: not at all 2. Feeling down, depressed, or hopeless: not at all 3. Trouble falling or staying asleep, or sleeping too much: several days 4. Feeling tired or having little energy: several days 5. Poor appetite or overeating: several days 6. Feeling bad about yourself - or that you are a failure or have let yourself or your family down: not at all 7. Trouble concentrating on things, such as reading the newspaper or watching television: not at all 8. Moving or speaking so slowly that other people could have noticed. Or the opposite - being so fidgety or restless that you have been moving around a lot more than usual: not at all 9. Thoughts that you would be better off or of hurting yourself in some way: not at all Total score: 3 Depression Screening Interpretation: Negative Depression Screening Done: Yes Source: Developed by Drs. Javier Johnson, Aurea Coe, James Contreras and colleagues, with an educational alicja from [employer]. Thrive Questionnaire Date Thrive assessed: 10/24/24 I am a: Patient What is your living situation today?: I have a steady place to live Within the past 12 months, did the food you bought not last and you didn't have the money to get more?: Sometimes True Within the past 12 months, did you worry whether your food would run out before you got money to buy more?: Sometimes True Do you have trouble paying for medicines?: Yes Do you have trouble getting transportation to medical appointments?: No Do you have trouble paying your heating and electricity bill?: No Do you have trouble taking care of your child, family member or friend?: No Do you have trouble with day-to-day activities such as bathing, preparing meals, shopping, managing finances, etc.?: No Are you currently unemployed and looking for a job?: No Are you interested in more education?: No Please select the resources that you would like help with: None Currently or been in a relationship where the following occur: No concerns reported THRIVE Score: 2 AUDIT C Alcohol Use Questionnaire (AUDIT-C) 1. How often do you have a drink containing alcohol?: Never 3. How often do you have six or more drinks on one occasion?: Never Total Score: 0 Score Reviewed/Action Taken: No ELIDA-7 AMB Questionnaire ELIDA-7 Date ELIDA - 7 assessed: 10/24/24 Feeling nervous, anxious, or on edge: 0 = Not at all Not being able to stop or control worryin = Several days Worrying too much about different things: 1 = Several days Trouble relaxin = Not at all Being so restless that it is hard to sit still: 0 = Not at all Becoming easily annoyed or irritable: 0 = Not at all Feeling afraid as if something awful might happen: 0 = Not at all Total ELIDA-7 score (0-4 normal; 5-9 mild; 10-14 moderate; 15-21 severe): 2 Source: Developed by Drs. Javier Johnson, Aurea Coe, James Contreras and colleagues, with an educational alicja from [employer]. Review of Systems Const Denies headache(s) Eyes Denies loss of vision ENT Denies vertigo, Denies dizziness, Denies headache(s) and Denies sore throat Card Denies chest pain, Denies leg edema and Denies lightheadedness Resp Denies cough, Denies hemoptysis and Denies wheezing GI Denies abdominal pain, Denies melena, Denies constipation, Denies diarrhea and Denies vomiting Denies dysuria, Denies urinary frequency and Denies urinary urgency Musc Denies arthralgias, Denies joint swelling, Denies numbness and Denies tingling Neuro Denies Abnormal speech present, Denies behavioral changes, Denies vertigo, Denies dizziness, Denies headache(s), Denies loss of vision, Denies memory loss, Denies numbness and Denies tingling Psych Denies anxiety, Denies behavioral changes, Denies depression, Denies memory loss and Denies panic attacks Cameron/Lymph Denies easy bleeding and Denies easy bruising Aller/Immun Denies wheezing Physical exam (Primary Care) Vital Signs: Last Vital Signs Temp 97.1 F 05/08/25 10:27 Pulse 90 05/08/25 10:27 BP 122/74 05/08/25 10:27 Pulse Ox 98 05/08/25 10:27 Oxygen Delivery Method Room Air 05/08/25 10:27 BMI result Body Mass Index 27.1 Tobacco/Smoking Status: Tobacco use Status Tobacco use date assessed 05/08/25 05/08/25 10:31 Patient Tobacco Use Status Never used Tobacco 05/08/25 09:09 e-Cigarette/Vaping Use Never Used 05/08/25 09:09 PHQ-9: PHQ-9 Score PHQ-9: Total score 3 05/08/25 10:31 Depression Screening Interpretation: Negative Thrive Assessment: Date of Thrive Assessment Date Thrive assessed 10/24/24 05/08/25 09:09 Currently or been in a relationship where the following occur: No concerns re ported Const General: healthy appearing, no acute distress, alert and awake Nutritional Appearance: well nourished Orientation/consciousness: oriented to person, oriented to place and oriented to time HENMT Ears: hearing grossly normal bilaterally General nose exam: Normal nasal mucous membranes and turbinates present Eyes Conjunctivae: conjunctivae normal Sclerae: sclerae normal Pupils: Equal, round and reactive pupils present Neck Neck: Yes no lymphadenopathy and Yes no JVD Thyroid: Thyroid normal Carotids: no bruits Resp Effort & Inspection: normal respiratory effort and not tachypneic Auscultation: no crackles, no rales, no rhonchi and no wheezes Cardio Rate: regular rate Rhythm: regular rhythm Heart sounds: S1 normal heart sound present, S2 normal heart sound present, no murmurs and normal S1 and S2 GI Palpation (GI): Soft to palpation, nontender, no hepatomegaly and no splenomegaly Auscultation: normal bowel sounds Skin General skin exam: no rashes or lesions noted and dry skin Neuro General: oriented to person, oriented to place and oriented to time Cranial nerves: Yes Equal, round and reactive pupils present Speech: No Abnormal speech present Gait exam (Neuro): Normal gait present Motor exam (neuro): no tremor noted Extrem Right upper extremity: full ROM Left upper extremity: full ROM Right lower extremity: full ROM; no edema Left lower extremity: full ROM; no edema Psych Mental Status: mental status grossly normal Speech and movement: Normal speech and movement present Affect: normal affect Attitude: cooperative Thought process: Normal thought process present Results Reviewed Results Reviewed: Laboratory Tests 05/03/25 05/03/25 07:59 08:04 WBC 7.9 RBC 5.03 Hgb 13.0 L Hct 40.0 L MCV 79.5 L MCH 25.8 L MCHC 32.5 RDW 13.5 Plt Count 271 MPV 11.6 Sodium 139 Potassium 4.0 Chloride 100 Carbon Dioxide 28 Anion Gap 15 BUN 33 H Creatinine 0.89 Estimated GFR > 60 Fasting Glucose 189 H Estimat Average Glucose 209 Hemoglobin A1c % 8.9 H Calcium 9.3 Total Bilirubin 0.6 AST 15 ALT 20 Alkaline Phosphatase 87 Total Protein 7.2 Albumin 4.3 Triglycerides 108 Cholesterol 233 H LDL Cholesterol, Calc 151 H HDL Cholesterol 61 25-OH Vitamin D Total 30.8 TSH 11.29 H Free T4 1.21 Urine Color Yellow Urine Appearance Clear Urine pH 5.5 Ur Specific Cassel 1.020 Urine Protein Negative Urine Glucose (UA) 250 H Urine Ketones Negative Urine Blood Moderate (2+) H Urine Nitrite Negative Ur Leukocyte Esterase Negative Urine RBC 3-5 H Ur Squamous Epith Cells 0-2 Urine Bacteria None Seen Hyaline Casts 0-2 Coding Level of Care Code Est Pt Level 4 (98699) Diagnoses Benign essential HTN I10 Tachyarrhythmia R00.0 Type 2 diabetes mellitus without complication, without long-term current use of insulin E11.9 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: without longterm use Diabetes mellitus complication status: without complication Acquired hypothyroidism E03.9 Benign prostatic hyperplasia, unspecified whether lower urinary tract symptoms present N40.0 Lower urinary tract symptom presence: unspecified whether lower urinary tract symptoms present Elevated PSA R97.20 Kidney stone N20.0 Time Spent (min) 39 Assessment & Plan Assessment & Plan (1) Benign essential HTN: Code(s): I10 - Essential (primary) hypertension Category: Medical (2) Tachyarrhythmia: Code(s): R00.0 - Tachycardia, unspecified Category: Medical (3) Type II diabetes mellitus: Comment: father Code(s): E11.9 - Type 2 diabetes mellitus without complications Category: Medical Qualifiers: 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: without longterm use Diabetes mellitus complication status: without complication Qualified Code(s): E11.9 - Type 2 diabetes mellitus without complications (4) Acquired hypothyroidism: Code(s): E03.9 - Hypothyroidism, unspecified Category: Medical (5) BPH (benign prostatic hyperplasia): Code(s): N40.0 - Benign prostatic hyperplasia without lower urinary tract symptoms Category: Medical Qualifiers: Lower urinary tract symptom presence: unspecified whether lower urinary tract symptoms present Qualified Code(s): N40.0 - Benign prostatic hyperplasia without lower urinary tract symptoms (6) Elevated PSA: Code(s): R97.20 - Elevated prostate specific antigen [PSA] Category: Medical (7) Kidney stone: Code(s): N20.0 - Calculus of kidney Category: Medical Plan The plan for diabetes mellitus includes monitoring HbA1c levels and considering adjustments to the current treatment regimen to achieve better glycemic control. Tradjenta 5 mg daily added. The patient is advised to reduce the intake of fried foods and maintain adherence to dietary recommendations. For tachycardia, a Holter monitor will be utilized to capture any arrhythmic events, and the patient is advised to monitor caffeine intake. Further evaluation by a hydrometer tester may be considered based on the Holter monitor results. The patient's hyperlipidemia and hypothyroidism will continue to be monitored, with adjustments to medications as necessary based on lab results. Levothyroxine 150 mcg daily continue. The patient is encouraged to maintain hydration to prevent recurrence of kidney stones. Continue flomax 0.4mg to relax the prostate allow complete emptying of the bladder. Reinforced low salt diet, continue lisinopril 40 mg daily and hydrochlorothiazide 12.5 mg daily. Patient was informed and verbally consented to the use of an ambient scribe for clinic note documentation during this visit. Orders: Orders Comprehensive Blair. Panel Fast 3 Months E03.9 - Hypothyroidism, unspecified, E11.9 - Type 2 diabetes mellitus without complications, I10 - Essential (primary) hypertension, N20.0 - Calculus of kidney, R00.0 - Tachycardia, unspecified TSH reflex Free T4 3 Months E03.9 - Hypothyroidism, unspecified, E11.9 - Type 2 diabetes mellitus without complications, I10 - Essential (primary) hypertension, N20.0 - Calculus of kidney, R00.0 - Tachycardia, unspecified ECG 7 day holter monitor Today R00.0 - Tachycardia, unspecified Lipid Panel 3 Months E03.9 - Hypothyroidism, unspecified, E11.9 - Type 2 diabetes mellitus without complications, I10 - Essential (primary) hypertension, N20.0 - Calculus of kidney, R00.0 - Tachycardia, unspecified UA CC w/rflx Micro + Cult 3 Months E03.9 - Hypothyroidism, unspecified, E11.9 - Type 2 diabetes mellitus without complications, I10 - Essential (primary) hypertension, N20.0 - Calculus of kidney, R00.0 - Tachycardia, unspecified Free T4 (Free Thyroxine) 3 Months E03.9 - Hypothyroidism, unspecified, E11.9 - Type 2 diabetes mellitus without complications, I10 - Essential (primary) hypertension, N20.0 - Calculus of kidney, R00.0 - Tachycardia, unspecified Hemoglobin A1c 3 Months E03.9 - Hypothyroidism, unspecified, E11.9 - Type 2 diabetes mellitus without complications, I10 - Essential (primary) hypertension, N20.0 - Calculus of kidney, R00.0 - Tachycardia, unspecified Medications: New linagliptin (Tradjenta) 5 mg PO DAILY 90 tabs 3RF Refilled hydrochlorothiazide 12.5 mg PO DAILY 30 tabs 3RF
[2025-05-08 10:27] VITALS: BP 122/74; PULSE 90; TEMP 36.2; O2SAT 98; BMI 27.1
== END 2025-05-08 11:05 | disposition home or self-care (01) ==
LOC: HO.HMCH 10:23
DX: I10 Essential (primary) hypertension (principal); R00.0 Tachycardia, unspecified; E11.9 Type 2 diabetes mellitus without complications; E03.9 Hypothyroidism, unspecified; N40.0 Benign prostatic hyperplasia without lower urinary tract symptoms; R97.20 Elevated prostate specific antigen [PSA]; N20.0 Calculus of kidney

== ENCOUNTER → 2025-05-08 10:22 | Outpatient (BNVA) | payer MEDICARE, SELFPAY | DX: I10 Essential (primary) hypertension (principal); R00.0 Tachycardia, unspecified; E11.9 Type 2 diabetes mellitus without complications; E03.9 Hypothyroidism, unspecified; N40.0 Benign prostatic hyperplasia without lower urinary tract symptoms; N20.0 Calculus of kidney; R97.20 Elevated prostate specific antigen [PSA] | CPT/HCPCS: 99212 ==

== ENCOUNTER → 2025-05-20 07:30 | Outpatient (REF) | payer MEDICARE, SELFPAY ==
--- NOTE | ~2025-05-20 | XR_ITS ---
CLINICAL HISTORY: N20.0 - Calculus of kidney Exam: Abdominal radiographs supine view Comparison: CT/SR - CT UROGRAM - 03/05/25 08:34 EDT Findings: Nonobstructive bowel gas pattern. 1 cm calcification overlies right renal hilar region, corresponding to the renal pelvis calculus seen on previous CT. No pneumatosis or pneumoperitoneum. No acute fracture. Unremarkable lung bases. Impression: Unchanged 1 cm calculus in the right renal pelvis. This document has been electronically signed by: Kate Canales MD on 05/21/2025 11:56:39
--- NOTE | 2025-05-20 08:09 | HM_ITS ---
* Total monitoring time 6 days. * Underlying rhythm is sinus with an average rate of 84/Min. * Rare supraventricular ectopy. About 28 runs, longest 32 seconds. Max rate 193/Min. * Rare ventricular ectopy. * No significant pauses or high-grade AV blocks. * Rapid/fast heartbeat in patient diary correlates with supraventricular tachycardia. MTDD
== END ==
LOC: HO.CARD 07:30
PROVIDERS: Absent Provider Urology
DX: N20.0 Calculus of kidney (principal); R00.0 Tachycardia, unspecified
CPT/HCPCS: 74018; 93242

== ENCOUNTER → 2025-05-20 07:35 | Outpatient (BNV) | payer MEDICARE, SELFPAY | PROVIDERS: Absent Provider Urology; Visit Provider Radiology Diagnostic Radiology | DX: N20.0 Calculus of kidney (principal) | CPT/HCPCS: 74018 ==

== ENCOUNTER → 2025-05-20 08:09 | Outpatient (BNV) | payer MEDICARE, SELFPAY | PROVIDERS: Absent Provider Urology; Visit Provider Internal Medicine | DX: I49.3 Ventricular premature depolarization (principal); I49.49 Other premature depolarization | CPT/HCPCS: 93244 ==

== ENCOUNTER 2025-05-29 07:29 | Outpatient (AMB) | payer MEDICARE, SELFPAY ==
--- NOTE | 2025-05-29 07:30 | A.OFFVIS_ITS ---
Intake Visit Reasons: 3m/[facility] Intake Note: Patient is present for 3 MO follow up Urology Medication:TAMSULOSIN Antibiotic Allergy:NONE Blood Thinner:NONE Government Affairs Director Required: No Accompanied by: Self / Same As Patient Allergies No Known Allergies Allergy (Verified 05/29/25 10:44) Medication List - Last Reconciled 05/29/25 by JEFFREY BarbaP- hydrochlorothiazide 12.5 mg PO DAILY levothyroxine 150 mcg PO DAILY lisinopril 40 mg PO DAILY metformin 1,000 mg (2 x 500 mg) PO BID tamsulosin (Flomax) 0.4 mg PO BEDTIME HPI Comments Details: Nilesh is a very pleasant 64-year-old male patient of Dr. Yoon. He has a past medical history of hypertension, type 2 diabetes, thyroid cancer, and pulmonary embolism. He presents to the office today for follow-up of her nephrolithiasis, elevated PSA as well as gross hematuria. In discussion with the patient today reports to be doing and feeling well. He denies having had any bothersome urinary issues or concerns. Of note, patient has underwent in office cystoscopy with Dr. Jose Jones 03/12 for gross hematuria that was noted Cystoscopy findings: prostatic urethra bilobar enlargement bulbous urethra WNL, no suspicious bladder lesions visualized. Workup also included a CT urogram that identified a large kidney stone over 1 cm in the right kidney possibly contributing to the hematuria and therefore recently underwent right-sided ESWL with Dr. Jose Jones 05/12. Recent KUB results reviewed with the patient today 06/12 Unchanged 1 cm calculus in the right renal pelvis. He reports since procedure he has urinated fragments. He denies any other bouts of hematuria. Previous urine cytology 11/12 Negative for high-grade urothelial carcinoma. We did discuss further interventions to include repeat right-sided ESWL verses surveillance monitoring verses ureteroscopy. Risks and benefits of these interventions were discussed. He denies urinary urgency, urinary frequency, incontinence, nocturia, hematuria, dysuria, foul smelling urine, changes to urinary stream, flank pain, fever, and or chills. He is happy with his current voiding parameters. PSAs are as follows: PSA: 11/12 4.7, 11/12 3.9 Recent Litholink results reviewed with the patient today. We discussed suboptimal urine volume of 1500. We did discuss increased volume of above 2.0- 2.5L for stone prevention. We discussed borderline hypocitraturia, low pH, and mild uric acid supersaturation. He reports compliance with Flomax as prescribed and feels this has been helpful with urinary stream. All questions were answered. He otherwise offers no other issues or concerns at this time. [facility] Medical History Hypothyroid Diabetes Thyroid cancer Hx pulmonary embolism Surgical History Hx of thyroidectomy S/P hemorrhoidectomy S/P hernia surgery Family History (Reviewed 05/08/25 @ 10:30 by Dinorah Robles [facility]) Father Stroke Type II diabetes mellitus HTN (hypertension) Social History Housing: Apartment Patient Tobacco Use Status: Never used Tobacco e-Cigarette/Vaping Use: Never Used service: No Current occupational status: employed and retired Cognitive needs: No Hearing needs: No Vision needs: No Review of Systems Const All systems reviewed & are unremarkable except as noted in HPI and below Physical Exam Const General: cooperative, healthy appearing, comfortable, no acute distress, well developed, alert and awake Orientation/consciousness: patient oriented x3 Resp Effort & Inspection: normal respiratory effort and able to speak in complete sentences Neuro General: patient oriented x3 Psych Appearance: grossly normal and well kempt Mental Status: mental status grossly normal Speech and movement: Clear speech present Affect: normal affect Attitude: cooperative Thought process: Normal thought process present Thought content: Normal thought content present Insight: Fair insight present (Psych) Judgement: Fair judgement present (Psych) Telehealth Telehealth Telehealth Platform: [facility] Location of provider rendering services: practice address Location of patient: address on file Patient Identification confirmed using: Name, : Yes Telehealth method: video Patient verbally consented to treatment: Yes Patient verbally consented to billing insurance company: Yes Patient informed of any privacy concerns related to visit: Yes Minutes spent on Phone/Video with Pt.: 15 Assessment & Plan Assessment & Plan (1) Kidney stone: Code(s): N20.0 - Calculus of kidney Category: Medical Plan: Plan Extracorporeal Shock Wave Lithotripsy We discussed the nature of the decision and reasonable alternatives for performing the above surgery. Interventions include chemical dissolution, ESWL, ureteroscopy with laser lithotripsy and stent placement, PCNL. ? Options such as medical therapy were discussed. The relative uncertainties and benefits related to each alternate procedure were adequately discussed. General surgical risks including, but not limited to, pain, bleeding, infection, myocardial infarction, pulmonary embolus, deep vein thrombosis and cerebrovascular accident which may result in further hospitalization were discussed.? Full disclosure of the procedure as well as all major risks, benefits and complications were discussed including but not limited to risks of bleeding, injury to the kidney with hematoma or amina-hematoma, failure to fragments stone, potential for ureteric obstruction from stone passage and need for secondary procedures.? There is a small long-term risk of hypertension and a question mini of diabetes.? Success rate of fragmentation and passage is approximately 70- 75%.? This is compared to the risks and benefits for ureteroscopy which has a higher success rate but is a more invasive procedure. The success rate of the procedure was discussed. Success of the procedure in the short-term does not necessarily guarantee that long-term success will be maintained. Suitable follow up will need to be maintained. The patient showed understanding of the discussion as well as the typical recovery time, and the outpatient nature of this procedure. Opportunity was given for questions. Repeat-back protocol used to confirm understanding. They wish to proceed with right sided ESWL (2) Hematuria: Code(s): R31.9 - Hematuria, unspecified Category: Medical Qualifiers: Glomerular morphologic changes: unspecified whether glomerular morphologic changes present Hematuria type: idiopathic Qualified Code(s): N02.9 - Recurrent and persistent hematuria with unspecified morphologic changes (3) Elevated PSA: Code(s): R97.20 - Elevated prostate specific antigen [PSA] Category: Medical (4) BPH (benign prostatic hyperplasia): Code(s): N40.0 - Benign prostatic hyperplasia without lower urinary tract symptoms Category: Medical Qualifiers: Lower urinary tract symptom presence: unspecified whether lower urinary tract symptoms present Qualified Code(s): N40.0 - Benign prostatic hyperplasia without lower urinary tract symptoms Plan Recent KUB results reviewed with the patient today; as noted above. Recent Litholink results reviewed with the patient today; as noted above. All questions were answered. We did discussed the importance of increase in hydration in relation to nephr olithiasis as well as overall health and well-being. We discussed nephrolithiasis and further interventions to include ESWL verses ureteroscopy verses surveillance monitoring; risks and benefits of these interventions were discussed We also discussed importance of continuing with surveillance monitoring of PSA. Continue Flomax as discussed and prescribed. We discussed adding 1 oz of lemon juice to water daily. We also discussed vitamin B6. He currently denies any bothersome urinary issues or concerns. He reports be happy with current voiding parameters. Will obtain PSA Will schedule for right-sided ESWL Follow-up per doctor's orders; or sooner with any issues, concerns, and or questions. Orders: Orders PSA,Total (Free>4and<10) Today N40.0 - Benign prostatic hyperplasia without lower urinary tract symptoms, R97.20 - Elevated prostate specific antigen [PSA] Patient Instructions: The patient had an opportunity to ask questions regarding the treatment plan. All questions were answered. Physical exam, labs, and imaging were discussed and reviewed in detail. As well as risks, benefits, and discussion of treatment choices. No major barriers to understanding were identified. The patient expressed understanding and agreement with the above treatment plan. The patient was made aware they should contact our office by phone for worsening of their current condition, the appearance of new symptoms, or with any que stions or concerns. Compliance is encouraged with any medications and follow up testing that is ordered. It is a privilege to be allowed the opportunity to participate in? your urological care.? Again, if you have any questions or concerns If you have any questions or concerns please do not hesitate to contact me. The office is [phone]. This note is constructed using voice recognition software. While every effort has been made to ensure accuracy cabin service agent errors may have been included. Yours sincerely, MITCH Barba Coding Level of Care Code Tele Est Pt Level 4 (85007) Diagnoses Kidney stone N20.0 Idiopathic hematuria, unspecified whether glomerular morphologic changes present N02.9 Glomerular morphologic changes: unspecified whether glomerular morphologic changes present Hematuria type: idiopathic Elevated PSA R97.20 Benign prostatic hyperplasia, unspecified whether lower urinary tract symptoms present N40.0 Lower urinary tract symptom presence: unspecified whether lower urinary tract symptoms present
== END 2025-05-29 08:35 | disposition home or self-care (01) ==
LOC: HO.HUSH 07:29
PROVIDERS: Visit Provider Nurse Practitioner Family
DX: N20.0 Calculus of kidney (principal); N02.9 Recurrent and persistent hematuria with unspecified morphologic changes; R97.20 Elevated prostate specific antigen [PSA]; N40.0 Benign prostatic hyperplasia without lower urinary tract symptoms
CPT/HCPCS: 99024

== ENCOUNTER → 2025-05-29 07:29 | Outpatient (BNVA) | payer MEDICARE, SELFPAY | PROVIDERS: Visit Provider Nurse Practitioner Family | DX: N20.0 Calculus of kidney (principal); R97.20 Elevated prostate specific antigen [PSA]; R31.0 Gross hematuria; N40.0 Benign prostatic hyperplasia without lower urinary tract symptoms; Z79.899 Other long term (current) drug therapy | CPT/HCPCS: 99212 ==

== ENCOUNTER 2025-06-04 12:49 | Outpatient (REF) | payer MEDICARE, SELFPAY ==
--- NOTE | ~2025-06-04 | US_ITS ---
EXAMINATION: US KIDNEY BILATERAL HISTORY: N20.0 - Calculus of kidney TECHNIQUE: Real-time grayscale ultrasound imaging of the kidneys was performed and images were reviewed. COMPARISON: Correlation is made with a CT urogram dated 03/05/2025. FINDINGS: Right kidney: The right kidney measures 12.6 x 5.1 x 5.4 cm. Renal parenchymal echotexture and thickness are normal. There is a 1.2 x 1.5 x 0.8 cm lower pole cyst. There is a nonobstructing 6 x 5 x 8 mm lower pole calculus. There is no hydronephrosis. Left Kidney: The left kidney measures 12.3 x 5.5 x 5.5 cm. Renal parenchymal echotexture and thickness are normal. There is an upper pole cyst measuring 12 x 10 x 9 mm. There is no hydronephrosis or renal calculi. US/US renal BI IMPRESSION: Nonobstructing 6 x 5 x 8 mm right renal calculus. Bilateral renal cysts as described. Electronically signed by: Javier Mckeon MD 06/04/2025 01:33 PM EDT
== END 2025-06-04 12:50 | disposition home or self-care (01) ==
LOC: HO.HMGCX 12:49
PROVIDERS: Visit Provider Urology
DX: N20.0 Calculus of kidney (principal)
CPT/HCPCS: 76775

== ENCOUNTER → 2025-06-04 12:50 | Outpatient (BNV) | payer MEDICARE, SELFPAY | PROVIDERS: Visit Provider Radiology Diagnostic Radiology | DX: N20.0 Calculus of kidney (principal) | CPT/HCPCS: 76775 ==

== ENCOUNTER → 2025-06-18 05:44 | Outpatient (BNV) | payer MEDICARE, SELFPAY | PROVIDERS: Visit Provider Radiology Diagnostic Radiology | DX: N20.0 Calculus of kidney (principal) | CPT/HCPCS: 74018 ==

== ENCOUNTER 2025-06-18 07:57 | Day surgery (SDC) | payer MEDICARE, SELFPAY ==
[2025-06-16 14:31] VITALS: BMI 26.9
--- NOTE | 2025-06-16 14:45 | HO.ANESPROP2 ---
Documented by User: Laura Kaminski NP 06/16/25 14:46 HPI - Anesthesia Eval Consult details Narrative: 64yo M for Right Lithotripsy ESW s/p same 04/2025 with GA-LMA 4 Anesthesia Pre-Procedure Meds Is the patient on any of the following meds?: SGLT2 Inhib PMFSH Active Problems Active Problems: All Active Problems Tachyarrhythmia (Acute) Kidney stone (Acute) BPH (benign prostatic hyperplasia) (Acute) Incomplete bladder emptying (Acute) Gross hematuria (Acute) Decreased urine output (Acute) Right groin hernia (Acute) Hematuria (Acute) Elevated PSA (Acute) Decreased hearing of both ears (Acute) Ringing in right ear (Acute) Constipation (Acute) Bilateral impacted cerumen (Acute) Acquired hypothyroidism (Acute) Benign essential HTN (Acute) Annual physical exam (Acute) Type II diabetes mellitus (Acute) Past Medical History Medical History Hypothyroid Diabetes Thyroid cancer Hx pulmonary embolism Family History Family History Father Stroke Type II diabetes mellitus HTN (hypertension) Family history of problems with anesthesia: No Surgical History Surgical History (Updated 06/16/25 @ 14:19 by Robina Carney RN) Hx of lithotripsy Hx of thyroidectomy S/P hemorrhoidectomy S/P hernia surgery History of Problems with Anesthesia: No Social History Social History Housing: Apartment Patient Tobacco Use Status: Never used Tobacco e-Cigarette/Vaping Use: Never Used Have you been hit, kicked, punched, or otherwise hurt by someone within the past year? If so, by whom?: No Are you DNR?: No Advance Directives: No Advance Directives Information Provided: Yes service: No Current occupational status: employed and retired Cognitive needs: No Hearing needs: No Vision needs: No Meds Allergies Allergy/AdvReac Type Severity Reaction Status Date / Time No Known Allergies Allergy Verified 05/29/25 10:44 Exam Height,Weight and Vital Signs: Height 5 ft 5.5 in Weight 74.4 kg Pertinent Lab Results Pertinent Lab Results: Laboratory Tests 05/03/25 08:04 WBC 7.9 Hgb 13.0 L Hct 40.0 L Plt Count 271 Sodium 139 Potassium 4.0 Chloride 100 Carbon Dioxide 28 BUN 33 H Creatinine 0.89 Assessment and Plan Assessment Anesthesia Assessment: Chart Reviewed Final Anesthetic Review Family History of Problems with Anesthesia: No History of Problems with Anesthesia: No Documented by User: Jacob Prieto MD 06/18/25 09:27 PMFSH Past Medical History Medical History Hypothyroid Diabetes Thyroid cancer Hx pulmonary embolism Family History Family History Father Stroke Type II diabetes mellitus HTN (hypertension) Surgical History Surgical History (Updated 06/16/25 @ 14:19 by Robina Carney RN) Hx of lithotripsy Hx of thyroidectomy S/P hemorrhoidectomy S/P hernia surgery Social History Social History Housing: Apartment Patient Tobacco Use Status: Never used Tobacco e-Cigarette/Vaping Use: Never Used Have you been hit, kicked, punched, or otherwise hurt by someone within the past year? If so, by whom?: No Are you DNR?: No Advance Directives: No Advance Directives Information Provided: Yes service: No Current occupational status: employed and retired Cognitive needs: No Hearing needs: No Vision needs: No Meds Allergies Allergy/AdvReac Type Severity Reaction Status Date / Time No Known Allergies Allergy Verified 05/29/25 10:44 Exam Exam Date and Time: 06/18/25 Airway Mallampati Class: II TM Dist: >3cm Neck ROM: Full Heart: RRR Lungs: ctab Assessment and Plan Final Anesthetic Review NPO: Yes ASA Class: III Final Preanesthetic Review: No Changes in Pt Med Stat, Meds/Allgs Chart Reviewed, Consent Obtained/Reviewed and Anes Risks/Benef Reviewed Patient Risk: Low Procedure Risk: Low Anesthetic Plan Anesthetic Plan: GA Disposition: Standard PACU
--- NOTE | ~2025-06-18 | XR_ITS ---
EXAMINATION: XR ABDOMEN 1 VIEW (KUB) HISTORY: right renal stone COMPARISON: Comparison is made with the prior examination dated 05/20/2025. FINDINGS: Two supine views of the abdomen are submitted. The bowel gas pattern is unremarkable, without evidence of mechanical obstruction. There is a large amount of stool throughout the colon. Again seen is a 10 mm calcification overlying the right renal shadow. There are phleboliths in the pelvis. There are no abnormal soft tissue masses. The bones are intact. XR/XR KUB IMPRESSION: 10 mm calcification overlying the right renal shadow without change. Electronically signed by: Javier Mckeon MD 06/18/2025 08:21 AM EDT
--- NOTE | 2025-06-18 07:47 | PC.NURSE ---
called left message pt late arrival ?no show
[2025-06-18 08:16] VITALS: BP 158/67; PULSE 76; RESP 18; TEMP 36.9; O2SAT 97; BMI 27.4
[2025-06-18] MEDS: Lactated Ringers 1,000 ML 100 ML IVCONT (08:30)
--- NOTE | 2025-06-18 09:15 | PC.NURSE ---
one liter fluid received in preop
--- NOTE | 2025-06-18 09:15 | MHC.SHP ---
Pre-Procedural Eval Section A - 24 Hr Update-Section A only Date of Service: 06/18/25 The patient is an INPATIENT: No The patient has been examined within 24 hours of the surgical procedure. The History & Physical has been completed within 30 days and I have reviewed it.: Yes Section B - Complete if H&P > 30 days Chief Complaint: Calculus of kidney, right Allergies: Allergies Allergy/AdvReac Type Severity Reaction Status Date / Time No Known Allergies Allergy Verified 05/29/25 10:44 Plan Diagnosis/Plan: Unchanged I have reviewed the history and physical and performed a pertinent physical examination on my patient. No changes have occurred unless specified. Right ESWL. Discussed risks to include but not limited to, blood in the urine, bruising to the skin, kidney hematoma, possible need for another procedure if a stone fragment obstructs the ureter while passing, possible need to repeat procedure if stone is not completely fragmented. Time Spent With Patient Time: Total time managing care of this patient today ____ minutes.
--- NOTE | 2025-06-18 09:16 | W.PM.OPN ---
Operative Note Operative Note Date of Service: 06/18/25 Narrative: PreOperative Diagnosis:? ? Right Renal stone Post Operative Diagnosis:??Right Renal stone Procedure:?Right ESWL Surgeon:?Dr Mega Mott Anesthesia:?General Indications for procedure: The patient understands there is a risk of bruising or hematoma to the kidney, infection, and stone migration following the procedure and subsequent intervention may be required.? - Imaging 8 x 8 mm stone Procedure: After informed consent was verified the patient was brought to the operating room and placed in a supine position.? Anesthesia was performed per protocol. Safety pause time-out was performed. Imaging was displayed in the room and laterality confirmed. ESWL was performed.?The stone was visualized on both fluoroscopy and ultrasound.? Shockwave lithotripsy was performed, with a maximum rate of 120 hertz. After the first 300 shocks a pause for 3 minutes was completed.? A total of 2500 shocks to a maximum of power of 20 with a maximum rate of 120 hertz.? Some fragmentation of the stone was appreciated. The patient tolerated the procedure well and was transferred to the recovery area upon completion. Complications: None
[2025-06-18 09:28] LABS: Glucose, Whole Blood 172 mg/dL (60-115)
[2025-06-18 10:25] VITALS: BP 123/73; PULSE 76; RESP 10; TEMP 37.1; O2SAT 100
[2025-06-18 10:30] VITALS: BP 120/77; PULSE 66; RESP 12; O2SAT 100
[2025-06-18 10:35] VITALS: BP 132/76; PULSE 65; RESP 12; O2SAT 100
[2025-06-18 10:40] VITALS: BP 113/79; PULSE 65; RESP 16; O2SAT 98
[2025-06-18 10:55] VITALS: BP 145/81; PULSE 64; RESP 14; TEMP 36.8; O2SAT 96
== END 2025-06-18 11:22 | disposition home or self-care (01) ==
PROVIDERS: Visit Provider Urology
PROC: (CPT 50590; principal; 2025-06-18 09:30)
DX: N20.0 Calculus of kidney (principal); I10 Essential (primary) hypertension; E11.9 Type 2 diabetes mellitus without complications; Z86.711 Personal history of pulmonary embolism; Z79.84 Long term (current) use of oral hypoglycemic drugs; Z79.899 Other long term (current) drug therapy
CPT/HCPCS: 50590; 74018; 82947; J0131; J0690; J1938; J2003; J2250; J2371; J2405; J2704; J3010

== ENCOUNTER → 2025-06-18 07:57 | Outpatient (BNV) | payer MEDICARE, SELFPAY | PROVIDERS: Visit Provider Urology | DX: N20.0 Calculus of kidney (principal) | CPT/HCPCS: 50590 ==

== ENCOUNTER 2025-07-08 09:21 | Outpatient (REF) | payer MEDICARE, SELFPAY ==
--- NOTE | ~2025-07-08 | US_ITS ---
CLINICAL HISTORY: N20.0 - Calculus of kidney US renal with Color Doppler Comparison: US/SR - US KIDNEY BILATERAL - 06/04/25 12:52 EDT CR/SR - XR KUB - 05/20/25 07:[address]/SR - CT UROGRAM - 03/05/25 08:34 EDT Findings: Right kidney normal size and echotexture, 13.4 cm length. No hydronephrosis. Normal color flow. Nonobstructing caliceal stone lower pole measuring 10 x 11 x 9 mm previously measuring 8 x 6 x 5 mm. Probable complex renal cortical cyst midpole measuring 9 x 8 x 9 mm and simple cyst 10 x 12 x 10 mm previously measuring 12 x 15 x 8 mm. Left kidney normal size and echotexture, 11.4 cm length. No hydronephrosis calculus or mass. Normal color flow. Pelvicaliectasis Impression: 1. Nephrolithiasis on the right. No evidence of obstructive uropathy. Probable renal cysts on the right can be correlated with CT or MRI with and without contrast renal protocol study. This document has been electronically signed by: Fercho Mooney MD on 07/09/2025 12:06:22
== END 2025-07-08 09:22 | disposition home or self-care (01) ==
LOC: HO.HMGCX 09:21
PROVIDERS: Visit Provider Urology
DX: N20.0 Calculus of kidney (principal)
CPT/HCPCS: 76775

== ENCOUNTER → 2025-07-08 09:23 | Outpatient (BNV) | payer MEDICARE, SELFPAY | PROVIDERS: Visit Provider Radiology Diagnostic Radiology | DX: N20.0 Calculus of kidney (principal) | CPT/HCPCS: 76775 ==

== ENCOUNTER 2025-07-29 10:43 | Outpatient (REF) | payer MEDICARE, SELFPAY ==
--- NOTE | ~2025-07-29 | XR_ITS ---
EXAMINATION: XR ABDOMEN KUB CLINICAL INDICATION: N20.0 - Calculus of kidney COMPARISON: 06/18/2025 TECHNIQUE: AP view of the abdomen. FINDINGS: 1 cm stone projecting in the mid to lower right kidney is no longer evident on x-ray. No fragments are seen in the expected region of the ureter. Small phleboliths in the pelvis, left greater than right, are stable. Paraspinous unremarkable. XR/XR KUB IMPRESSION: 1 cm right kidney stone is no longer visible on x-ray. Electronically signed by: Piyush Dillon MD 07/29/2025 11:10 AM TRIP
== END 2025-07-29 10:44 | disposition home or self-care (01) ==
LOC: HO.XRAY 10:43
PROVIDERS: Visit Provider Urology
DX: N20.0 Calculus of kidney (principal)
CPT/HCPCS: 74018

== ENCOUNTER → 2025-07-29 10:46 | Outpatient (BNV) | payer MEDICARE, SELFPAY | PROVIDERS: Visit Provider Radiology Diagnostic Radiology | DX: N20.0 Calculus of kidney (principal) | CPT/HCPCS: 74018 ==

== ENCOUNTER 2025-08-01 13:50 | Outpatient (AMB) | payer MEDICARE, SELFPAY ==
--- NOTE | 2025-08-01 14:09 | A.OFFVIS_ITS ---
Intake Visit Reasons: ESWL, US/KUB Intake Note: Patient is present for ESWL,US/KUB Follow up Urology Medication:TAMSULOSIN Antibiotic Allergy:NONE Blood Thinner:NONE PVR:529ml Clean Room Assembler Required: No Allergies No Known Allergies Allergy (Verified 08/01/25 14:11) HPI Comments Details: 08/01/25 History of Present Illness The patient is a 64-year-old male presenting with a follow-up for nephrolithiasis post-extracorporeal shock wave lithotripsy (ESWL). The patient underwent ESWL for a right kidney stone, and subsequent imaging showed the stone was no longer present. The patient reported passing multiple stone fragments, approximately ten at one time, and experienced relief from pain following this event. The patient had previously completed a 24-hour urine collection and was advised to increase fluid intake to prevent future stone formation. A repeat 24-hour urine collection is planned in six months to monitor the patient's condition, along with an ultrasound to evaluate the kidneys. Results - Imaging: KUB X-ray 07/29/25--post-ESWL --1 cm right kidney stone is no longer visible on x-ray. Plan 1. Nephrolithiasis (Kidney Stones) - Continue monitoring with a repeat 24-hour urine collection in six months. - Increase fluid intake as previously advised to prevent recurrence. - Follow-up ultrasound in six months to evaluate kidney status. 05/29/25--Nilesh is a very pleasant 64-year-old male patient of Dr. Yoon. He has a past medical history of hypertension, type 2 diabetes, thyroid cancer, and pulmonary embolism. He presents to the office today for follow-up of her nephrolithiasis, elevated PSA as well as gross hematuria. In discussion with the patient today reports to be doing and feeling well. He denies having had any bothersome urinary issues or concerns. Of note, patient has underwent in office cystoscopy with Dr. Jose Jones 03/12 for gross hematuria that was noted. Cystoscopy findings: prostatic urethra bilobar enlargement bulbous urethra WNL, no suspicious bladder lesions visualized. Workup also included a CT urogram that identified a large kidney stone over 1 cm in the right kidney possibly contributing to the hematuria and therefore recently underwent right-sided ESWL with Dr. Jose Jones 05/12. Recent KUB results reviewed with the patient today 06/12 Unchanged 1 cm calculus in the right renal pelvis. He reports since procedure he has urinated fragments. He denies any other bouts of hematuria. Previous urine cytology 11/12 Negative for high-grade urothelial carcinoma. We did discuss further interventions to include repeat right-sided ESWL verses surveillance monitoring verses ureteroscopy. Risks and benefits of these interventions were discussed. He denies urinary urgency, urinary frequency, incontinence, nocturia, hematuria, dysuria, foul smelling urine, changes to urinary stream, flank pain, fever, and or chills. He is happy with his current voiding parameters. PSAs are as follows: PSA: 11/12 4.7, 11/12 3.9 Recent [facility]ol[facility] results reviewed with the patient today. We discussed suboptimal urine volume of 1500. We did discuss increased volume of above 2.0- 2.5L for stone prevention. We discussed borderline hypocitraturia, low pH, and mild uric acid supersaturation. He reports compliance with Flomax as prescribed and feels this has been helpful with urinary stream. All questions were answered. He otherwise offers no other issues or concerns at this time. [facility] Medical History Hypothyroid Diabetes Thyroid cancer Hx pulmonary embolism Surgical History Hx of lithotripsy Hx of thyroidectomy S/P hemorrhoidectomy S/P hernia surgery Family History Father Stroke Type II diabetes mellitus HTN (hypertension) Social History Housing: Apartment Patient Tobacco Use Status: Never used Tobacco e-Cigarette/Vaping Use: Never Used service: No Current occupational status: employed and retired Cognitive needs: No Hearing needs: No Vision needs: No Office Procedures Post Void Residual Post Residual Void Post Void Residual (PVR): [id number] Void Residual by ultrasound Results Reviewed Results Reviewed: Date of Service: 07/29/25 EXAMINATION: XR ABDOMEN KUB CLINICAL INDICATION: N20.0 - Calculus of kidney COMPARISON: 06/18/2025 TECHNIQUE: AP view of the abdomen. FINDINGS: 1 cm stone projecting in the mid to lower right kidney is no longer evident on x-ray. No fragments are seen in the expected region of the ureter. Small phleboliths in the pelvis, left greater than right, are stable. Paraspinous unremarkable. IMPRESSION: 1 cm right kidney stone is no longer visible on x-ray. Date of Service: 07/08/25 CLINICAL HISTORY: N20.0 - Calculus of kidney US renal with Color Doppler Comparison: US/SR - US KIDNEY BILATERAL - 06/04/25 12:52 EDT CR/SR - XR KUB - 05/20/25 07:[address]/SR - CT UROGRAM - 03/05/25 08:34 EDT Findings: Right kidney normal size and echotexture, 13.4 cm length. No hydronephrosis. Normal color flow. Nonobstructing caliceal stone lower pole measuring 10 x 11 x 9 mm previously measuring 8 x 6 x 5 mm. Probable complex renal cortical cyst midpole measuring 9 x 8 x 9 mm and simple cyst 10 x 12 x 10 mm previously measuring 12 x 15 x 8 mm. Left kidney normal size and echotexture, 11.4 cm length. No hydronephrosis calculus or mass. Normal color flow. Pelvicaliectasis Impression: 1. Nephrolithiasis on the right. No evidence of obstructive uropathy. Probable renal cysts on the right can be correlated with CT or MRI with and without contrast renal protocol study. Date of Service: 03/05/25 CLINICAL HISTORY: R31.0 - Gross hematuria CT abdomen and pelvis with and without contrast Comparison: None provided Findings: No consolidation or effusion. There is adrenal hyperplasia. There is mild dilatation of the left central renal collecting system without roger hydronephrosis. A 1 cm calculus is seen within the right extrarenal pelvis. There is mild hydronephrosis. A small cyst arises from the lower pole of the right kidney. The gallbladder in the rest of the solid organs are unremarkable. There is a right inguinal hernia containing a loop of small bowel. There is no evidence of incarceration or bowel obstruction. The appendix is not identified. There is no evidence of appendicitis. The bones are intact. The rest of the GI tract is unremarkable. IMPRESSION: 1. Large calculus within the right renal pelvis with mild hydronephrosis. 2. Right inguinal hernia containing a loop of small bowel without evidence of bowel obstruction or incarceration. Assessment & Plan Assessment & Plan (1) BPH (benign prostatic hyperplasia): Code(s): N40.0 - Benign prostatic hyperplasia without lower urinary tract symptoms Category: Medical Qualifiers: Lower urinary tract symptom presence: unspecified whether lower urinary tract symptoms present Qualified Code(s): N40.0 - Benign prostatic hyperplasia without lower urinary tract symptoms (2) Kidney stone: Code(s): N20.0 - Calculus of kidney Category: Medical Plan Plan 1. Nephrolithiasis (Kidney Stones) - Continue monitoring with a repeat 24-hour urine collection in six months. - Increase fluid intake as previously advised to prevent recurrence. - Follow-up ultrasound in six months to evaluate kidney status. Orders: Orders Surgical 08/01/25 N20.0 - Calculus of kidney AMB Post Void Residual by ultrasound 08/01/25 R33.9 - Retention of urine, unspecified Patient Instructions: The patient had an opportunity to ask questions regarding treatment plan. The patient expressed understanding and agreement with the above treatment plan. The patient is aware they should contact our office by phone for worsening of their current condition or the appearance of new symptoms. Compliance is encouraged with any medications and followup testing that is ordered. It is a privilege to be allowed the opportunity to participate in the urologic care of your patient. If you have any questions or concerns regarding treatment for the above conditions please do not hesitate to contact me. The office telephone contact is [phone]. This note is constructed in part using voice recognition software. While every effort has been made to ensure accuracy solids control technician errors may have been included. Yours sincerely, Mega Mott MD Scribe Plan - Not visible on output: Patient was informed and verbally consented to the use of an ambient scribe for clinic note documentation during this visit. Coding Level of Care Code Global (96763) Diagnoses Benign prostatic hyperplasia, unspecified whether lower urinary tract symptoms present N40.0 Lower urinary tract symptom presence: unspecified whether lower urinary tract symptoms present Kidney stone N20.0 CPT Codes Post Residual Void - PVR CPT Code: 88133-Staf Void Residual by ultrasound ([id number])
== END 2025-08-01 14:39 | disposition home or self-care (01) ==
LOC: HO.HUSH 13:51
PROVIDERS: Visit Provider Urology
DX: N40.0 Benign prostatic hyperplasia without lower urinary tract symptoms (principal); N20.0 Calculus of kidney
CPT/HCPCS: 99024

== ENCOUNTER 2025-08-01 13:50 | Outpatient (REF) | payer MEDICARE, SELFPAY | END 2025-08-01 13:51 | disposition home or self-care (01) | LOC: HO.LNP 13:50 | PROVIDERS: Visit Provider Urology | DX: N20.0 Calculus of kidney (principal); R33.9 Retention of urine, unspecified | CPT/HCPCS: 51798; 82365; 88300 ==